=== PATIENT | female | born 1950 | race Two or more races ===

== ENCOUNTER 2019-03-29 08:04 | Inpatient (IN) | payer MEDICARE, OTHER ==
[~2019-03-29] VITALS: Ht 152.4 cm; Wt 57.8 kg
--- NOTE | 2019-03-29 08:04 | NUR ---
ED Nurse Note: Pt brought into ED by ambulance for coughing up sputum w/ blood since last night. Pt is from home. Pt is alert and orientedx4, divehi speaking. She is ambulatory with assistance. No vomiting, but coughing up sputum. Dried blood in L nostril.
[2019-03-29] MEDS ORDERED: Pantoprazole Inj IV ONE (08:15)
[2019-03-29] MEDS ORDERED: cefTRIAXone 1 GM in NS 55 ML IV ONE (08:15)
[2019-03-29] MEDS ORDERED: Pantoprazole 80 MG in NS 250 ML IV ONE (08:15)
[2019-03-29] MEDS ORDERED: Pantoprazole Inj IVP ONE (08:15)
--- NOTE | 2019-03-29 08:17 | Emergency Room Report ---
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 Patient states that she coughed this morning and vomited bright red blood. EMS was called. EMS states there was bright red blood in the house but that there has been no bleeding since. Patient denies being on any blood thinners or any medication daily. She denies any chest pain or shortness of breath. She complains of epigastric pain. She denies NSAID consumption as well as alcohol consumption. No recent travel. No fever or chills. Allergies: Coded Allergies: TURKEY (Unverified Allergy, Unknown, 03/29/19) Tuna (Unverified Allergy, Unknown, 03/29/19) Patient History Social History: Denies: smoking, alcohol use, drug use Last Menstrual Period: na Reviewed Nursing Documentation: PMH: Agreed; PSxH: Agreed Nursing Documentation-PMH Past Medical History: No Stated History Review of Systems All Other Systems: negative except mentioned in HPI Physical Exam Vital Signs Date Time Temp Pulse Resp B/P (MAP) Pulse Ox O2 Delivery O2 Flow Rate FiO2 03/29/19 07:57 98.1 117 20 125/75 (92) 97 Room Air Sp02 EP Interpretation: reviewed, normal General Appearance: no apparent distress, alert, GCS 15, non-toxic Head: normocephalic, atraumatic Eyes: bilateral eye normal inspection, bilateral eye PERRL ENT: hearing grossly normal, normal pharynx, no angioedema, normal voice, other - Dried blood around her left nare Neck: full range of motion, supple/symm/no masses, other - Dried blood on her anterior neck Respiratory: chest non-tender, lungs clear, normal breath sounds, speaking full sentences Cardiovascular #1: no edema, tachycardia Cardiovascular #2: 2+ carotid (R), 2+ carotid (L), 2+ radial (R), 2+ radial (L) , 2+ dorsalis pedis (R), 2+ dorsalis pedis (L) Gastrointestinal: normal bowel sounds, soft, non-distended, no guarding, no rebound, other - Gastric pain with no guarding or rebound Rectal: deferred Genitourinary: normal inspection, no CVA tenderness Musculoskeletal: back normal, normal range of motion, calf tenderness, gait/ station normal, non-tender Neurologic: alert, motor strength/tone normal, oriented x3, sensory intact, responsive, speech normal Psychiatric: judgement/insight normal, memory normal, mood/affect normal, no suicidal/homicidal ideation Reflexes: 3+ bicep (R), 3+ bicep (L), 3+ tricep (R), 3+ tricep (L), 3+ knee (R) , 3+ knee (L) Lymphatic: no adenopathy Procedures Critical Care Time Critical Care Time Total critical care time: Approximately 35 minutes. Due to a high probability of clinically significant, life threatening deterioration, the patient required my highest level of preparedness to intervene emergently and I personally spent this critical care time directly and personally managing the patient. This critical care time included obtaining a history; examining the patient; pulse oximetry; ordering and review of studies; arranging urgent treatment with development of a management plan; evaluation of patient's response to treatment ; frequent reassessment; and, discussions with other providers.This critical care time was performed to assess and manage the high probability of imminent, life-threatening deterioration that could result in multi-organ failure. It was exclusive of separately billable procedures and treating other patients and teaching time. Please see MDM section and the rest of the note for further information on patient assessment and treatment. Medical Decision Making Diagnostic Impression: Primary Impression: Upper GI bleed ER Course Patient reevaluated at 9 AM. Her heart rate is improving current heart rate 95 bpm. Patient had no episodes of vomiting. Patient was given 4 mg of IV Zofran. Patient given fluid bolus. Patient given 80 mg of IV Protonix and started on a Protonix drip at 8 mg an hour. Since hemoglobin and hematocrit are stable but will need to be rechecked in [address] for [address] abdomen pelvis to rule out any acute intra-abdominal pathology. Results are pending. Dr. Duarte who is hospitalist glue maker bone is at bedside evaluating patient for admission and will call for GI consultation. Laboratory Tests Test 03/29/19 08:15 03/29/19 08:55 White Blood Count 3.5 K/UL (4.8-10.8) L Red Blood Count 4.98 M/UL (4.20-5.40) Hemoglobin 14.5 G/DL (12.0-16.0) Hematocrit 41.4 % (37.0-47.0) Mean Corpuscular Volume 83 FL (80-99) Mean Corpuscular Hemoglobin 29.1 PG (27.0-31.0) Mean Corpuscular Hemoglobin Concent 35.1 G/DL (32.0-36.0) Red Cell Distribution Width 12.0 % (11.6-14.8) Platelet Count 166 K/UL (150-450) Mean Platelet Volume 8.5 FL (6.5-10.1) Neutrophils (%) (Auto) 63.0 % (45.0-75.0) Lymphocytes (%) (Auto) 25.5 % (20.0-45.0) Monocytes (%) (Auto) 9.3 % (1.0-10.0) Eosinophils (%) (Auto) 1.6 % (0.0-3.0) Basophils (%) (Auto) 0.6 % (0.0-2.0) Prothrombin Time 11.0 SEC (9.30-11.50) Prothrombin Time INR 1.0 (0.9-1.1) Activated Partial Thromboplast Time 29 SEC (23-33) Sodium Level 138 MMOL/L (136-145) Potassium Level 3.4 MMOL/L (3.5-5.1) L Chloride Level 103 MMOL/L (98-107) Carbon Dioxide Level 24 MMOL/L (21-32) Anion Gap 11 mmol/L (5-15) Blood Urea Nitrogen 14 mg/dL (7-18) Creatinine 0.8 MG/DL (0.55-1.30) Estimate Glomerular Filtration Rate > 60 mL/min (>60) Glucose Level 101 MG/DL (74-106) Calcium Level 9.6 MG/DL (8.5-10.1) Total Bilirubin 0.4 MG/DL (0.2-1.0) Aspartate Amino Transferase (AST) 27 U/L (15-37) Alanine Aminotransferase (ALT) 14 U/L (12-78) Alkaline Phosphatase 93 U/L (46-116) Total Protein 8.4 G/DL (6.4-8.2) H Albumin 4.1 G/DL (3.4-5.0) Globulin 4.3 g/dL Albumin/Globulin Ratio 1.0 (1.0-2.7) Lipase 83 U/L (73-393) Urine Color Pale yellow Urine Appearance Clear Urine pH 6 (4.5-8.0) Urine Specific [place] 1.010 (1.005-1.035) Urine Protein Negative (NEGATIVE) Urine Glucose (UA) Negative (NEGATIVE) Urine Ketones 1+ (NEGATIVE) H Urine Blood 2+ (NEGATIVE) H Urine Nitrite Negative (NEGATIVE) Urine Bilirubin Negative (NEGATIVE) Urine Urobilinogen Normal MG/DL (0.0-1.0) Urine Leukocyte Esterase Negative (NEGATIVE) Urine RBC Pending Urine WBC Pending Urine Squamous Epithelial Cells Pending Urine Bacteria Pending EKG Diagnostic Results EKG Time: 08:22 EP Interpretation: Karly Krause MD Rate: tachycardiac Rhythm: other - sinus tachycardia ST Segments: no acute changes ASA given to the pt in ED: No Rhythm Strip Diag. Results Rhythm Strip Time: 08:22 EP Interpretation: yes Rate: 104 Rhythm: no PVC's, no ectopy, other - sinus tachycardia Last Vital Signs Date Time Temp Pulse Resp B/P (MAP) Pulse Ox O2 Delivery O2 Flow Rate FiO2 03/29/19 07:57 98.1 117 20 125/75 (92) 97 Room Air Disposition: ADMITTED INPATIENT Condition: Critical Karly Krause M.D. Mar 29, 2019 08:17
[2019-03-29 08:30] VITALS: BP 151/82
[2019-03-29 08:42] LABS: BASOPHILS % (AUTO) 0.6 % (0.0-2.0); EOSINOPHILS % (AUTO) 1.6 % (0.0-3.0); HEMATOCRIT 41.4 % (37.0-47.0); HEMOGLOBIN 14.5 G/DL (12.0-16.0); LYMPHOCYTES % (AUTO) 25.5 % (20.0-45.0); MEAN CORPUSCULAR VOLUME 83 FL (80-99); MONOCYTES % (AUTO) 9.3 % (1.0-10.0); PLATELET COUNT 166 K/UL (150-450); RED BLOOD COUNT 4.98 M/UL (4.20-5.40); WHITE BLOOD COUNT 3.5 K/UL (4.8-10.8)
--- NOTE | 2019-03-29 08:50 | NUR ---
ED Nurse Note: Pt taken to CT.
[2019-03-29 09:01] LABS: ANION GAP 11 mmol/L (5-15); BLOOD UREA NITROGEN 14 mg/dL (7-18); CALCIUM 9.6 MG/DL (8.5-10.1); CARBON DIOXIDE 24 MMOL/L (21-32); CHLORIDE 103 MMOL/L (98-107); CREATININE 0.8 MG/DL (0.55-1.30); POTASSIUM 3.4 MMOL/L (3.5-5.1); SODIUM 138 MMOL/L (136-145)
[2019-03-29 09:05] LABS: ALANINE AMINOTRANSFERASE 14 U/L (12-78); ALBUMIN 4.1 G/DL (3.4-5.0); ALKALINE PHOSPHATASE 93 U/L (46-116); ASPARTATE AMINO TRANSFERASE 27 U/L (15-37); BILIRUBIN,TOTAL 0.4 MG/DL (0.2-1.0)
[2019-03-29 09:07] LABS: APPEARANCE,URINE CLEAR; BILIRUBIN, URINE NEGATIVE (NEGATIVE); COLOR,URINE PALE YELLOW; GLUCOSE, URINE (UA) NEGATIVE (NEGATIVE); KETONES,URINE 1+ (NEGATIVE); LEUKOCYTE ESTERASE ,URINE NEGATIVE (NEGATIVE); NITRITE,URINE NEGATIVE (NEGATIVE); PH,URINE 6 (4.5-8.0); PROTEIN,URINE NEGATIVE (NEGATIVE); UROBILINOGEN,URINE NORMAL MG/DL (0.0-1.0)
--- NOTE | 2019-03-29 09:28 | Diagnostic Imaging Report ---
INDICATION: Abdominal pain TECHNIQUE: Continuous helical transaxial imaging of the abdomen and pelvis was obtained from the lung bases to the pubic symphysis. No intravenous contrast was administered. Coronal 2-D reformats were also obtained. Automatic Exposure Control was utilized. Total Dose length Product (DLP): A [address] Dose Index Volume (CTDIvol): 15.1 mGy Comparison: none FINDINGS: Lungs: Reticular, groundglass and some airspace opacification noted within the visualized lung bases. The reticular or interstitial densities predominate. The heart is enlarged. There is a small hiatal hernia. No pleural effusion is identified. . Liver: There is motion related artifact present which limits evaluation. No gross abnormalities are seen. Gallbladder/biliary system: Gallbladder is surgically absent. There are surgical clips in the gallbladder fossa. No biliary ductal dilatation is seen.. Spleen: There is suggestion of calcifications within the spleen which is normal in size. Pancreas: Grossly unremarkable Kidneys/Bladder: There is mild right hydroureteronephrosis. There is no obvious obstructing stone identified on this examination. The left kidney is unremarkable. The bladder is unremarkable.. Adrenal glands: Unremarkable Bowel: No obvious evidence for bowel obstruction. Appendix is only partially seen at its base and appearing normal. In addition, there are no secondary signs of acute appendicitis appreciated. Aorta/IVC: Mild arterial calcification noted within the aorta. No aneurysm identified. Peritoneum: There is no free fluid. Atrophic uterus demonstrated.. There are metallic artifacts posterior to the uterus of undetermined cause. This may be from prior surgery. Bones: There is a moderate scoliosis of the lumbar spine convex to the left. There is narrowing of intervertebral discs and accompanying endplate osteophyte formation. Hypertrophied facet joints also demonstrated. IMPRESSION: Mild right hydroureteronephrosis without evidence of obstruction. Consider recently passed stone or pyelonephritis. Basilar lung disease. Suspect CHF or interstitial pneumonitis. Please correlate clinically. Limited evaluation due to artifacts primarily related to motion. Hiatal hernia Atherosclerotic disease Status post cholecystectomy. Scoliosis and moderate degenerative disease. Calcified granulomata within the spleen. Metallic artifacts in the low pelvis may be from prior surgery. Correlate clinically. Note: Evaluation of solid organs is limited on non contrast imaging. The CT scanner at [facility] is accredited by the [employer] and the scans are performed using dose optimization techniques as appropriate to a performed exam including Automatic Exposure control.
--- NOTE | 2019-03-29 09:47 | History and Physical ---
History of Present Illness General Date patient seen: Mar 29, 2019 Reason for Hospitalization: Gastrointestinal Bleed Present Illness HPI Patient is a 68-year-old female from [facility] who presented today ER with blood in her vomit. Patient says she is never had this happen to her in the past. Patient denies any diarrhea or abdominal pain. She has a history of hypertension, hydronephrosis, cervical cancer status post chemoradiation and surgery, cholecystitis status post cholecystostomy tube and cholecystectomy eventually. She denies any weight loss, dysphagia, odynophagia. Vomiting blood only happened once and has not recurred since she came to the ER. Patient says she takes no medications. She denies any chest pain, shortness of breath, palpitations. She denies any history of previous GI bleeding. She denies taking ibuprofen, Advil, Aleve. In the middle of my interview patient phone rang, patient started talking on the phone, and did not get off. Interview ended prematurely. PAST MEDICAL HISTORY: Hypertension.Hydronephrosis. Cervical cancer, status post chemoradiation. Cholecystitis, status post cholecystectomy. PAST SURGICAL HISTORY: Hysterectomy and cholecystectomy. SOCIAL HISTORY: The patient denies any tobacco, alcohol, or drug abuse. FAMILY HISTORY: Denies family history of DM or HTN Allergies: Coded Allergies: TURKEY (Unverified Allergy, Unknown, 03/29/19) Tuna (Unverified Allergy, Unknown, 03/29/19) Medication History No Active Prescriptions or Reported Meds Patient History Healthcare decision maker Resuscitation status Advanced Directive on File Review of Systems Constitutional: Denies: no symptoms, see HPI, chills, sweats, fever, malaise, weakness, other Eye: Denies: no symptoms, see HPI, eye pain, blurred vision, tearing, double vision, nose pain, nose congestion, acuity changes, discharge, other ENT: Denies: no symptoms, see HPI, ear pain, ear discharge, nose pain, nose congestion, throat pain, throat swelling, mouth pain, hearing loss, nasal discharge, other Respiratory: Denies: no symptoms, see HPI, cough, orthopnea, shortness of breath, stridor, wheezing, NICHOLSON, sputum, other Cardiovascular: Denies: no symptoms, see HPI, chest pain, edema, palpitations, syncope, PND, other Gastrointestinal: Reports: vomiting, hematemesis Genitourinary: Denies: no symptoms, see HPI, discharge, dysuria, frequency, hematuria, pain, retention, incontinence, urgency, vag bleed/dc, other Musculoskeletal: Denies: no symptoms, see HPI, back pain, gout, joint pain, joint swelling, muscle pain, muscle stiffness, other Psychiatric: Denies: no symptoms, see HPI, prior hx, anxiety, depressed feelings, emotional problems, SI, HI, hallucinations, other Neurological: Denies: no symptoms, see HPI, headache, numbness, paresthesia, seizure, tingling, tremors, focal weakness, syncope, dizziness, other Endocrine: Denies: no symptoms, see HPI, excessive sweating, flushing, intolerance to temperature, increased thirst, increased urine, unexplained weight loss, other Hematologic/Lymphatic: Denies: no symptoms, see HPI, anemia, blood clots, easy bleeding, easy bruising, swollen glands, diathesis, other Physical Exam General Appearance: WD/WN, no apparent distress, alert Lines, tubes and drains: peripheral HEENT: normocephalic, atraumatic Neck: normal alignment, supple Respiratory/Chest: other - did not examine due to lack of cooperation Cardiovascular/Chest: other - Did not examine due to lack of cooperation Abdomen: other - Did not examine due to lack of cooperation Extremities: normal range of motion Skin Exam: normal pigmentation, warm/dry Neurologic: other - Did not examine due to lack of cooperation Musculoskeletal: normal muscle bulk Last 24 Hour Vital Signs Date Time Temp Pulse Resp B/P (MAP) Pulse Ox O2 Delivery O2 Flow Rate FiO2 03/29/19 08:30 98.1 104 23 151/82 99 Nasal Cannula 2.0 03/29/19 08:30 104 23 Nasal Cannula 2.0 99 03/29/19 07:57 98.1 117 20 125/75 (92) 97 Room Air Laboratory Tests Test 03/29/19 08:15 03/29/19 08:55 White Blood Count 3.5 K/UL (4.8-10.8) L Red Blood Count 4.98 M/UL (4.20-5.40) Hemoglobin 14.5 G/DL (12.0-16.0) Hematocrit 41.4 % (37.0-47.0) Mean Corpuscular Volume 83 FL (80-99) Mean Corpuscular Hemoglobin 29.1 PG (27.0-31.0) Mean Corpuscular Hemoglobin Concent 35.1 G/DL (32.0-36.0) Red Cell Distribution Width 12.0 % (11.6-14.8) Platelet Count 166 K/UL (150-450) Mean Platelet Volume 8.5 FL (6.5-10.1) Neutrophils (%) (Auto) 63.0 % (45.0-75.0) Lymphocytes (%) (Auto) 25.5 % (20.0-45.0) Monocytes (%) (Auto) 9.3 % (1.0-10.0) Eosinophils (%) (Auto) 1.6 % (0.0-3.0) Basophils (%) (Auto) 0.6 % (0.0-2.0) Prothrombin Time 11.0 SEC (9.30-11.50) Prothromb Time International Ratio 1.0 (0.9-1.1) Activated Partial Thromboplast Time 29 SEC (23-33) Sodium Level 138 MMOL/L (136-145) Potassium Level 3.4 MMOL/L (3.5-5.1) L Chloride Level 103 MMOL/L (98-107) Carbon Dioxide Level 24 MMOL/L (21-32) Anion Gap 11 mmol/L (5-15) Blood Urea Nitrogen 14 mg/dL (7-18) Creatinine 0.8 MG/DL (0.55-1.30) Estimat Glomerular Filtration Rate > 60 mL/min (>60) Glucose Level 101 MG/DL (74-106) Calcium Level 9.6 MG/DL (8.5-10.1) Total Bilirubin 0.4 MG/DL (0.2-1.0) Aspartate Amino Transf (AST/SGOT) 27 U/L (15-37) Alanine Aminotransferase (ALT/SGPT) 14 U/L (12-78) Alkaline Phosphatase 93 U/L (46-116) Total Protein 8.4 G/DL (6.4-8.2) H Albumin 4.1 G/DL (3.4-5.0) Globulin 4.3 g/dL Albumin/Globulin Ratio 1.0 (1.0-2.7) Lipase 83 U/L (73-393) Urine Color Pale yellow Urine Appearance Clear Urine pH 6 (4.5-8.0) Urine Specific [place] 1.010 (1.005-1.035) Urine Protein Negative (NEGATIVE) Urine Glucose (UA) Negative (NEGATIVE) Urine Ketones 1+ (NEGATIVE) H Urine Blood 2+ (NEGATIVE) H Urine Nitrite Negative (NEGATIVE) Urine Bilirubin Negative (NEGATIVE) Urine Urobilinogen Normal MG/DL (0.0-1.0) Urine Leukocyte Esterase Negative (NEGATIVE) Urine RBC 2-4 /HPF (0 - 2) H Urine WBC 0 /HPF (0 - 2) Urine Squamous Epithelial Cells Occasional /LPF Urine Bacteria Occasional /HPF (NONE) Height (Feet): 5 Weight (Pounds): 135 Medications Current Medications Medications (Trade) Dose Ordered Sig/Pancho Route PRN Reason Start Time Stop Time Status Last Admin Dose Admin Pantoprazole 80 mg/Sodium Chloride 250 ml @ 25 mls/hr Q10H ONCE IV 03/29/19 08:15 03/29/19 18:14 03/29/19 09:[address] abdomen pelvis: Mild right hydroureteronephrosis without evidence of obstruction. Consider recently passed stone or pyelonephritis. Basilar lung disease. Suspect CHF or interstitial pneumonitis. Please correlate clinically. Limited evaluation due to artifacts primarily related to motion. Hiatal hernia Atherosclerotic disease Status post cholecystectomy. Scoliosis and moderate degenerative disease. Calcified granulomata within the spleen. Metallic artifacts in the low pelvis may be from prior surgery. Correlate clinically. CXR: Interstitial opacities nonspecific. Considerations include mild CHF or pneumonitis EKG is personally interpreted by me: sinus tachycardia at 101, LVH Assessment/Plan Problem List: (1) Upper GI bleed ICD Codes: K92.2 - Gastrointestinal hemorrhage, unspecified SNOMED: [id number] Status: stable Assessment/Plan: 68-year-old female with history of cervical cancer status post hysterectomy and chemotherapy who presented with hematemesis. Her white blood cell count is low at 3.5, hemoglobin 14, hematocrit 41, platelet count 166. Sodium 138, potassium 344 her BUN is 14 and creatinine is 0.8. Her liver function tests are normal. CT abdomen pelvis was done without contrast which showed evidence of mild right hydroureteronephrosis without evidence of obstruction, hiatal hernia. #Hematemesis #Upper GI bleed Admit to telemetry Keep n.p.o. except for meds IV fluids for hydration Monitor H&H, transfuse if less than 7 Protonix drip GI consultation I spent 72 minutes in this encounter. Greater than 50% spent counseling and care coordination. I spent 35 minutes on reviewing old records. Plan of care discussed with patient, consultants and ED physician. Saul Duarte M.D. Mar 29, 2019 09:47
--- NOTE | 2019-03-29 09:49 | NUR ---
ED Nurse Note: MD notified pt coughed up 20 cc of blood and that pt is asking for something for cough.
[2019-03-29] MEDS ORDERED: guaiFENesin w/Codeine 5ml Liq ud ORAL PRN (10:00)
[2019-03-29] MEDS ORDERED: Albuterol/Ipratropium 3ml neb HHN PRN (10:00)
[2019-03-29 11:00] VITALS: BP 143/81
--- NOTE | 2019-03-29 12:05 | NUR ---
ED Nurse Note: Pt transferred to tele. Report given to Wicho Bonilla RN. Pt is a&ox4, set up on monitor. Received by RN. All belongings taken up.
[2019-03-29 12:30] VITALS: BP 124/80
--- NOTE | 2019-03-29 13:21 | Diagnostic Imaging Report ---
Indication: Dyspnea Comparison: None A single view chest radiograph was obtained. Findings: Interstitial densities appear prominent within the lungs. Heart is borderline enlarged. Bones are osteopenic. Left hemidiaphragm may be slightly elevated. IMPRESSION: Interstitial opacities nonspecific. Considerations include mild CHF or pneumonitis
--- NOTE | 2019-03-29 13:39 | NUR ---
NURSE NOTES: Received pt from BANQUET SUPERVISOR COLEEN 1210 pm, All admission assessments and instructions done and pt verbally confirmed to understand all. Pt is awake and alert, pt is in RA, no SOB or acute respiratory distress noted. , Pt has intact iv access LAC 20G is running well.Pt is on continues heart monitoring. Dr CERDA is aware about K 3.4 and explain EGD, waiting to call back. Pt is NPO as order. pt is coughing with no blood so far. skin is intact. all needs attended, bed is locked and is in the lowest position, call light within easy reach. will continue to monitor. Addendum: 03/29/19 at 1513 by Wicho Kennedy RN pt stated no meds at home.
[2019-03-29 16:00] VITALS: BP 133/76
--- NOTE | 2019-03-29 16:45 | Consultation ---
DATE OF CONSULTATION: 03/29/2019 CONSULTING PHYSICIAN: Bairon Johnson M.D. CHIEF COMPLAINT: GI bleeding, hematemesis. HISTORY OF PRESENT ILLNESS: This is a 68-year-old female with past medical history of hypertension, hydronephrosis, cervical cancer status post chemoradiation, cholecystitis initially requiring cholecystostomy tube placement and subsequently cholecystectomy presented to the hospital with hematemesis. According to the patient, she never had this colon problem before, never had an endoscopy before. Just she she started having vomiting blood. Denies any dysphagia. Denies any odynophagia. Denies any dizziness. PAST MEDICAL HISTORY: 1. Hypertension. 2. Hydronephrosis. 3. Cervical cancer, status post chemoradiation. 4. Cholecystitis, status post cholecystectomy. ALLERGIES: To turkey and tuna. MEDICATIONS: Please see medication reconciliation list. SOCIAL HISTORY: The patient denies any tobacco, alcohol, or drug abuse. FAMILY HISTORY: Noncontributory. PAST SURGICAL HISTORY: Hysterectomy and cholecystectomy. REVIEW OF SYSTEMS: A 10-point review of systems was performed and pertinent positives in HPI. PHYSICAL EXAMINATION: GENERAL: Well-developed female, in no acute distress. VITAL SIGNS: Temperature is 98.1, pulse 97, respirations 20, blood pressure 142/81. HEENT: Normocephalic, atraumatic. Sclerae anicteric. NECK: Supple. No evidence of obvious lymphadenopathy. CARDIOVASCULAR: Rhythm rate and rhythm. Plus S1, S2. No obvious murmur. LUNGS: Clear to auscultation bilaterally. ABDOMEN: Positive bowel sounds. Soft and nontender. No rebound. No guarding. No peritoneal sign. EXTREMITIES: No cyanosis. No clubbing. No edema. LABORATORY DATA: White count 3.5, hemoglobin 14, hematocrit 41, platelet count is 166. Chem-7 sodium 138, potassium 3.4, BUN is 14, creatinine is 0.8. Liver function grossly normal. CT of the abdomen and pelvis was done in the emergency room without contrast, which showed evidence of mild right hydroureteronephrosis without any evidence of obstruction, vascular lung disease suspect for CHF or interstitial pneumonia, hiatal hernia, scoliosis, calcified granulomatous disease. ASSESSMENT AND PLAN: This is a 68-year-old female with hematemesis. Plan to keep her NPO except for medication. IV fluids for hydration. Monitor hemoglobin and hematocrit. Transfuse to keep hemoglobin above 7. Protonix drip. Plan to do an endoscopy today if it is possible, if not tomorrow morning. I want to thank Dr. Rolon and Dr. Hughes for this kind referral. Bairon Johnson M.D. DR: JOSE ARMANDO JOB#: [id number] CC: Belinda Rolon M.D.; Fax#: [phone] Saul Duarte M.D.
--- NOTE | 2019-03-29 16:47 | NUR ---
NURSE NOTES: pt vomited 10cc, Dr CERDA is aware. will continue to monitor.
--- NOTE | 2019-03-29 18:39 | NUR ---
NURSE NOTES: Dr CERDA called back and ordered REGLAN and KCL, and is aware that pt needs to be informed about EGD to sign the consent form, stated he will come tomorrow to explain the procedure to pt and consent form can be signed tomorrow. will continue to monitor.
--- NOTE | 2019-03-29 19:16 | NUR ---
NURSE NOTES: Received pt from JUAN F Sands. pt awake, alert, and talkative. Family at bedside. Bed in lowest position. Call light within reach. RN reported that pt will sign consent tomorrow after MD explains procedure. Will continue to monitor.
--- NOTE | 2019-03-29 19:20 | NUR ---
HAND-OFF: Report given to CASSIDY ROGEL. Pt is awake and stable, daughter is on bed side.
[2019-03-29 20:00] VITALS: BP 120/48
[2019-03-29] MEDS: Pantoprazole Inj IVP SCH (21:39)
[2019-03-29] MEDS: Metoclopramide 10mg/2ml Inj IVP SCH (21:39)
--- NOTE | 2019-03-29 23:41 | NUR ---
NURSE NOTES: Called and left a message with Dr. Hurley (covering for Dr. Rolon) regarding pts request for sleeping pill. Awaiting call back.
[2019-03-30] VITALS (10 sets, daily range): BP systolic 97–136; BP diastolic 54–87
--- NOTE | 2019-03-30 01:21 | NUR ---
NURSE NOTES: Called and left a second message with Dr. Rolon regarding pts request for a sleeping pill. Awaiting call back.
[2019-03-30] MEDS: Metoclopramide 10mg/2ml Inj IVP SCH ×4 (03:01→20:22)
[2019-03-30 07:19] LABS: ANION GAP 12 mmol/L (5-15); BLOOD UREA NITROGEN 15 mg/dL (7-18); CALCIUM 8.8 MG/DL (8.5-10.1); CARBON DIOXIDE 21 MMOL/L (21-32); CHLORIDE 107 MMOL/L (98-107); CREATININE 0.8 MG/DL (0.55-1.30); POTASSIUM 4.2 MMOL/L (3.5-5.1); SODIUM 140 MMOL/L (136-145)
[2019-03-30 07:34] LABS: BASOPHILS % (AUTO) 0.2 % (0.0-2.0); EOSINOPHILS % (AUTO) 0.3 % (0.0-3.0); HEMATOCRIT 32.7 % (37.0-47.0); HEMOGLOBIN 11.4 G/DL (12.0-16.0); LYMPHOCYTES % (AUTO) 14.6 % (20.0-45.0); MEAN CORPUSCULAR VOLUME 83 FL (80-99); MONOCYTES % (AUTO) 7.6 % (1.0-10.0); NEUTROPHILS % (AUTO) 77.3 % (45.0-75.0); PLATELET COUNT 142 K/UL (150-450); RED BLOOD COUNT 3.93 M/UL (4.20-5.40); RED CELL DISTRIBUTION WIDTH 12.1 % (11.6-14.8); WHITE BLOOD COUNT 4.7 K/UL (4.8-10.8)
--- NOTE | 2019-03-30 07:39 | NUR ---
NURSE NOTES: Received pt from CASSIDY ROGEL, Pt is awake and alert, pt is in RA, no SOB or acute respiratory distress noted. Pt has intact iv access LAC 20G is running well. No complain of pain at this moment. pt is NPO due to EGD today. Pt is on continues heart monitoring. all needs attended, bed is locked and is in the lowest position, call light within easy reach. will continue to monitor.
--- NOTE | 2019-03-30 08:00 | GI Progress Note ---
Assessment/Plan Problems: (1) Upper GI bleed ICD Codes: K92.2 - Gastrointestinal hemorrhage, unspecified SNOMED: 38390134 Assessment/Plan plan for EGD for today Objective Last 24 Hour Vital Signs Date Time Temp Pulse Resp B/P (MAP) Pulse Ox O2 Delivery O2 Flow Rate FiO2 03/30/19 04:00 89 03/30/19 04:00 97.0 87 20 136/87 (103) 93 03/30/19 00:00 86 03/29/19 21:00 Room Air 03/29/19 20:00 99 03/29/19 20:00 97.0 90 20 120/48 (72) 95 03/29/19 16:00 98.1 97 18 133/76 (95) 93 03/29/19 15:28 86 03/29/19 15:09 69 18 96 Room Air 8.0 36 65 16 95 03/29/19 13:01 92 03/29/19 13:00 Room Air 03/29/19 12:30 97.7 95 21 124/80 (95) 94 03/29/19 12:05 98.6 87 21 124/86 98 Room Air 03/29/19 11:00 98.1 97 20 143/81 96 Room Air 03/29/19 08:30 98.1 104 23 151/82 99 Nasal Cannula 2.0 03/29/19 08:30 104 23 Nasal Cannula 2.0 99 Intake and Output 03/29/19 03/30/19 19:00 07:00 Intake Total 940 ml Output Total 20 ml Balance 920 ml Intake Oral 0 ml IV Total 940 ml Output Emesis 20 ml # Voids 3 3 Laboratory Tests Test 03/29/19 08:15 03/29/19 08:55 03/30/19 06:05 White Blood Count 3.5 K/UL (4.8-10.8) L 4.7 K/UL (4.8-10.8) L Red Blood Count 4.98 M/UL (4.20-5.40) 3.93 M/UL (4.20-5.40) L Hemoglobin 14.5 G/DL (12.0-16.0) 11.4 G/DL (12.0-16.0) L Hematocrit 41.4 % (37.0-47.0) 32.7 % (37.0-47.0) L Mean Corpuscular Volume 83 FL (80-99) 83 FL (80-99) Mean Corpuscular Hemoglobin 29.1 PG (27.0-31.0) 29.2 PG (27.0-31.0) Mean Corpuscular Hemoglobin Concent 35.1 G/DL (32.0-36.0) 35.0 G/DL (32.0-36.0) Red Cell Distribution Width 12.0 % (11.6-14.8) 12.1 % (11.6-14.8) Platelet Count 166 K/UL (150-450) 142 K/UL (150-450) L Mean Platelet Volume 8.5 FL (6.5-10.1) 7.2 FL (6.5-10.1) Neutrophils (%) (Auto) 63.0 % (45.0-75.0) 77.3 % (45.0-75.0) H Lymphocytes (%) (Auto) 25.5 % (20.0-45.0) 14.6 % (20.0-45.0) L Monocytes (%) (Auto) 9.3 % (1.0-10.0) 7.6 % (1.0-10.0) Eosinophils (%) (Auto) 1.6 % (0.0-3.0) 0.3 % (0.0-3.0) Basophils (%) (Auto) 0.6 % (0.0-2.0) 0.2 % (0.0-2.0) Prothrombin Time 11.0 SEC (9.30-11.50) Prothromb Time International Ratio 1.0 (0.9-1.1) Activated Partial Thromboplast Time 29 SEC (23-33) Sodium Level 138 MMOL/L (136-145) 140 MMOL/L (136-145) Potassium Level 3.4 MMOL/L (3.5-5.1) L 4.2 MMOL/L (3.5-5.1) Chloride Level 103 MMOL/L (98-107) 107 MMOL/L (98-107) Carbon Dioxide Level 24 MMOL/L (21-32) 21 MMOL/L (21-32) Anion Gap 11 mmol/L (5-15) 12 mmol/L (5-15) Blood Urea Nitrogen 14 mg/dL (7-18) 15 mg/dL (7-18) Creatinine 0.8 MG/DL (0.55-1.30) 0.8 MG/DL (0.55-1.30) Estimat Glomerular Filtration Rate > 60 mL/min (>60) > 60 mL/min (>60) Glucose Level 101 MG/DL (74-106) 71 MG/DL (74-106) L Calcium Level 9.6 MG/DL (8.5-10.1) 8.8 MG/DL (8.5-10.1) Total Bilirubin 0.4 MG/DL (0.2-1.0) Aspartate Amino Transf (AST/SGOT) 27 U/L (15-37) Alanine Aminotransferase (ALT/SGPT) 14 U/L (12-78) Alkaline Phosphatase 93 U/L (46-116) Total Protein 8.4 G/DL (6.4-8.2) H Albumin 4.1 G/DL (3.4-5.0) Globulin 4.3 g/dL Albumin/Globulin Ratio 1.0 (1.0-2.7) Lipase 83 U/L (73-393) Urine Color Pale yellow Urine Appearance Clear Urine pH 6 (4.5-8.0) Urine Specific [place] 1.010 (1.005-1.035) Urine Protein Negative (NEGATIVE) Urine Glucose (UA) Negative (NEGATIVE) Urine Ketones 1+ (NEGATIVE) H Urine Blood 2+ (NEGATIVE) H Urine Nitrite Negative (NEGATIVE) Urine Bilirubin Negative (NEGATIVE) Urine Urobilinogen Normal MG/DL (0.0-1.0) Urine Leukocyte Esterase Negative (NEGATIVE) Urine RBC 2-4 /HPF (0 - 2) H Urine WBC 0 /HPF (0 - 2) Urine Squamous Epithelial Cells Occasional /LPF Urine Bacteria Occasional /HPF (NONE) Height (Feet): 5 Height (Inches): 0.00 Weight (Pounds): 135 General Appearance: alert Cardiovascular: normal peripheral pulses Respiratory/Chest: lungs clear Abdominal Exam: normal bowel sounds, non tender, soft Extremities: non-tender Bairon Johnson MD Mar 30, 2019 08:00
--- NOTE | 2019-03-30 08:01 | NUR ---
HAND-OFF: Report given to JUAN F Sands. Pt stable.
[2019-03-30] MEDS: Pantoprazole Inj IVP SCH ×2 (08:24→20:22)
--- NOTE | 2019-03-30 08:25 | NUR ---
NURSE NOTES: 5mg REGLAN is wasted in med room.
--- NOTE | 2019-03-30 09:06 | NUR ---
NURSE NOTES: pt vomited 10cc blood, Dr CERDA is aware, no new order to RN. Will continue to monitor.
[2019-03-30] MEDS ORDERED: Atropine Inj 1mg/10ml Syr IV PRN (11:45)
[2019-03-30] MEDS ORDERED: DiphenhydrAMINE 50mg/ml Inj IVP PRN (11:45)
[2019-03-30] MEDS ORDERED: fentaNYL 100 mcg/2 mL IV PRN (11:45)
--- NOTE | 2019-03-30 11:48 | Anethesia Preoperative Eval ---
Anesthesia Pre-op PMH/ROS General Date of Evaluation: Mar 30, 2019 Time of Evaluation: 11:46 Anesthesiologist: cynthia ASA Score: ASA 3 Mallampati Score Class I : Soft palate, uvula, fauces, pillars visible Class II: Soft palate, uvula, fauces visible Class III: Soft palate, base of uvula visible Class IV: Only hard plate visible Mallampati Classification: Class II Surgeon: vinny Diagnosis: gi bleed Surgical Procedure: egd Anesthesia History: none Social History: smoking - nonsmoker Family History: no anesthesia problems Allergies: Coded Allergies: TURKEY (Unverified Allergy, Unknown, 03/29/19) Tuna (Unverified Allergy, Unknown, 03/29/19) Medications: see eMAR Patient NPO?: Yes Past Medical History Cardiovascular: Reports: HTN Gastrointestinal/Genitourinary: Reports: other - gi bleed, cervical cancer, cholecystectomy Anesthesia Pre-op Phys. Exam Physician Exam Last Vital Signs Date Time Temp Pulse Resp B/P (MAP) Pulse Ox O2 Delivery O2 Flow Rate FiO2 03/30/19 09:00 Room Air 03/30/19 08:00 98.1 100 18 126/63 (84) 94 03/29/19 15:09 8.0 36 Constitutional: NAD Neurologic: CN 2-12 intact Cardiovascular: RRR Respiratory: CTA Gastrointestinal: S/NT/ND Airway Exam Mallampati Score: Class II MO: full Neck: flexible TMD: 2fb ROM: full Teeth: missing Dentures: upper, lower Anesthesia Pre-op A/P Labs Hematology Test 03/30/19 06:05 White Blood Count 4.7 K/UL (4.8-10.8) L Red Blood Count 3.93 M/UL (4.20-5.40) L Hemoglobin 11.4 G/DL (12.0-16.0) L Hematocrit 32.7 % (37.0-47.0) L Mean Corpuscular Volume 83 FL (80-99) Mean Corpuscular Hemoglobin 29.2 PG (27.0-31.0) Mean Corpuscular Hemoglobin Concent 35.0 G/DL (32.0-36.0) Red Cell Distribution Width 12.1 % (11.6-14.8) Platelet Count 142 K/UL (150-450) L Mean Platelet Volume 7.2 FL (6.5-10.1) Neutrophils (%) (Auto) 77.3 % (45.0-75.0) H Lymphocytes (%) (Auto) 14.6 % (20.0-45.0) L Monocytes (%) (Auto) 7.6 % (1.0-10.0) Eosinophils (%) (Auto) 0.3 % (0.0-3.0) Basophils (%) (Auto) 0.2 % (0.0-2.0) Chemistry Test 03/30/19 06:05 Sodium Level 140 MMOL/L (136-145) Potassium Level 4.2 MMOL/L (3.5-5.1) Chloride Level 107 MMOL/L (98-107) Carbon Dioxide Level 21 MMOL/L (21-32) Anion Gap 12 mmol/L (5-15) Blood Urea Nitrogen 15 mg/dL (7-18) Creatinine 0.8 MG/DL (0.55-1.30) Estimat Glomerular Filtration Rate > 60 mL/min (>60) Glucose Level 71 MG/DL (74-106) L Calcium Level 8.8 MG/DL (8.5-10.1) Risk Assessment & Plan Assessment: asa3 Plan: mac Status Change Before Surgery: No Pre-Antibiotics Drug: Patricia Trujillo MD Mar 30, 2019 11:48
[2019-03-30] MEDS ORDERED: D5NS 1000ml IV ONE (12:00)
[2019-03-30] MEDS ORDERED: Propofol 200mg/20ml IV ONE (12:00)
[2019-03-30] MEDS ORDERED: Lidocaine 1% MPF 10mg/ml 5ml ONE (12:00)
[2019-03-30] MEDS ORDERED: Esmolol 100mg/10ml Inj ONE (12:00)
--- NOTE | 2019-03-30 12:01 | NUR ---
NURSE NOTES: pt is A&O x4 and stable, left unit to GI lab, waiting to come back.
--- NOTE | 2019-03-30 12:18 | Pre-Procedure Note/Attestation ---
Pre-Procedure Note/Attestation Complete Prior to Procedure Planned Procedure: not applicable Procedure Narrative: egd Indications for Procedure Pre-Operative Diagnosis: gib Attestation I attest that I discussed the nature of the procedure; its benefits; risks and complications; and alternatives (and the risks and benefits of such alternatives ), prior to the procedure, with the patient (or the patient's legal business office representative). I attest that, if there was a reasonable possibility of needing a blood transfusion, the patient (or the patient's legal business office representative) was given the [facility] standardized written summary, pursuant to the Gildardo Da Blood Safety Act ([place] Health and Safety Code # 1645, as amended). I attest that I re-evaluated the patient just prior to the surgery and that there has been no change in the patient's H&P, except as documented below: Bairon Johnson MD Mar 30, 2019 12:18
[2019-03-30] MEDS ORDERED: NS 500ML IVPB ONE (12:20)
--- NOTE | 2019-03-30 12:34 | Endoscopy Procedure Note ---
Endoscopy Procedure Note General Indication for Procedure: gib Procedures Performed: EGD Operative Findings/Diagnosis: gastritis Specimen: yes Pt Tolerated Procedure Well: Yes Estimated Blood Loss: none Anesthesia Anesthesiologist: diamond Anesthesia: MAC Inserted Devices Implant(s) used?: No GI Core Measures 50 yrs or older w/o bx or poly: Not Applicable 10yrs. F/U recommended: Not Applicable Bairon Johnson MD Mar 30, 2019 12:34
[2019-03-30] MEDS ORDERED: Omnipaque-300 100ml vial INJ PRN (12:35)
--- NOTE | 2019-03-30 13:19 | Immediate Post-Op Evaluation ---
Immediate Post-Op Evalulation Immediate Post-Op Evalulation Procedure: egd w/bx Date of Evaluation: Mar 30, 2019 Time of Evaluation: 12:48 IV Fluids: 250ml d5/0.9ns Blood Products: none Estimated Blood Loss: negligible Blood Pressure Systolic: 101 Blood Pressure Diastolic: 54 Pulse Rate: 112 Respiratory Rate: 18 O2 Sat by Pulse Oximetry: 100 Temperature (Fahrenheit): 98.1 Pain Score (1-10): 0 Nausea: No Vomiting: No Complications none Patient Status: awake, reacts, patent Hydration Status: adequate Drug: Patricia Trujillo MD Mar 30, 2019 13:19
--- NOTE | 2019-03-30 13:20 | 48 Hour Post Anesthesia Eval ---
Post Anesthesia Evaluation Procedure: egd w/bx Date of Evaluation: Mar 30, 2019 Time of Evaluation: 12:50 Blood Pressure Systolic: 105 0: 60 Pulse Rate: 109 Respiratory Rate: 18 Temperature (Fahrenheit): 98.1 O2 Sat by Pulse Oximetry: 100 Airway: patent Nausea: No Vomiting: No Pain Intensity: 0 Hydration Status: adequate Cardiopulmonary Status: stable Mental Status/LOC: patient returned to baseline Post-Anesthesia Complications: none Follow-up care needed: N/A Patricia Feng MD Mar 30, 2019 13:20
--- NOTE | 2019-03-30 13:49 | NUR ---
CASE MANAGEMENT: INITIAL REVIEW 68YR OLD FEMALE FROM HOME CC: VOMITING BLOOD GASTROINTESTINAL BLEED PMH: HTN ; HYDRONEPHROSIS , CERVICAL CA S/P CHEMORADIATION; CHOLECYSTITIS, S/P CHOLECYSTECTOMY SI:UPPER GI BLEED . MILD CHF OR PNEUMONITIS 98.0 117 20 125/75 97% ON RA WBC 3.5 K+ 3.4 IS:IV ROCEPHIN X1 IVF NS BOLUS X1 IV ZOFRAN X1 IV PROTONIX X2 CHEST X-RAY X1- MILD CHF OR PNEUMONITIS CT ABD/PEL X1 EKG- SINUS TACHYCARDIA 101 LVH \: 2E TELE UNIT DCP: HOME WHEN STABLE PLAN: IVF PROTONIX DRIP GI CONSULT ADMIT TELE SCD'S APPLIED SOCK TURNER CONSENT FOR EGD WITH POSSIBLE BIOPSY
--- NOTE | 2019-03-30 14:02 | General Progress Note ---
Assessment/Plan Problem List: (1) Upper GI bleed ICD Codes: K92.2 - Gastrointestinal hemorrhage, unspecified SNOMED: 25571143 Status: stable, unchanged Assessment/Plan: 68-year-old female with history of cervical cancer status post hysterectomy and chemotherapy who presented with hematemesis. Her white blood cell count is low at 3.5, hemoglobin 14, hematocrit 41, platelet count 166. Sodium 138, potassium 344 her BUN is 14 and creatinine is 0.8. Her liver function tests are normal. CT abdomen pelvis was done without contrast which showed evidence of mild right hydroureteronephrosis without evidence of obstruction, hiatal hernia. #Hematemesis #Upper GI bleed Admit to telemetry Keep n.p.o. except for meds IV fluids for hydration Monitor H&H, transfuse if less than 7 Protonix drip GI consultation, EGD today I spent 42 minutes in this encounter. Greater than 50% spent counseling and care coordination. Plan of care discussed with patient, consultants and ED physician. Subjective Date patient seen: Mar 30, 2019 ROS Limited/Unobtainable: No Constitutional: Denies: no symptoms, chills, diaphoresis, fever, malaise, weakness, other HEENT: Denies: no symptoms, eye pain, blurred vision, tearing, double vision, ear pain, ear discharge, nose pain, nose congestion, throat pain, throat swelling, mouth pain, mouth swelling, other Cardiovascular: Denies: no symptoms, chest pain, edema, irregular heart rate, lightheadedness, palpitations, syncope, other Respiratory: Denies: no symptoms, cough, orthopnea, shortness of breath, SOB with excertion, SOB at rest, sputum, stridor, wheezing, other Gastrointestinal/Abdominal: Reports: other - coughing up blood Genitourinary: Denies: no symptoms, burning, discharge, frequency, flank pain, hematuria, incontinence, pain, urgency, other Neurologic/Psychiatric: Denies: no symptoms, anxiety, depressed, emotional problems, headache, numbness, paresthesia, pre-existing deficit, seizure, tingling, tremors, weakness, other Endocrine: Denies: no symptoms, excessive sweating, flushing, intolerance to cold, intolerance to heat, increased hunger, increased thirst, increased urine, unexplained weight gain, unexplained weight loss, other Hematologic/Lymphatic: Denies: no symptoms, anemia, easy bleeding, easy bruising, other Allergies: Coded Allergies: TURKEY (Unverified Allergy, Unknown, 03/29/19) Tuna (Unverified Allergy, Unknown, 03/29/19) Subjective EGD today. Hgb dropped by 3 grams Objective Last 24 Hour Vital Signs Date Time Temp Pulse Resp B/P (MAP) Pulse Ox O2 Delivery O2 Flow Rate FiO2 03/30/19 13:20 109 18 100 03/30/19 13:19 112 18 100 03/30/19 12:59 98.0 110 23 112/60 100 Nasal Cannula 3 03/30/19 12:50 109 23 105/60 100 Nasal Cannula 3 03/30/19 12:45 111 19 101/54 98 Nasal Cannula 3 03/30/19 12:40 111 24 97/55 98 Nasal Cannula 3 03/30/19 12:36 98.1 114 22 101/54 98 Nasal Cannula 3 03/30/19 11:53 97.9 106 18 121/67 (85) 95 03/30/19 11:45 107 03/30/19 09:00 Room Air 03/30/19 08:00 98.1 100 18 126/63 (84) 94 03/30/19 07:46 99 03/30/19 04:00 89 03/30/19 04:00 97.0 87 20 136/87 (103) 93 03/30/19 00:00 86 03/29/19 21:00 Room Air 03/29/19 20:00 99 03/29/19 20:00 97.0 90 20 120/48 (72) 95 03/29/19 16:00 98.1 97 18 133/76 (95) 93 03/29/19 15:28 86 03/29/19 15:09 69 18 96 Room Air 8.0 36 65 16 95 Intake and Output 03/29/19 03/30/19 19:00 07:00 Intake Total 940 ml Output Total 20 ml Balance 920 ml Intake Oral 0 ml IV Total 940 ml Output Emesis 20 ml # Voids 3 3 Laboratory Tests 03/30/19 06:05: White Blood Count 4.7L, Red Blood Count 3.93L, Hemoglobin 11.4L, Hematocrit 32.7L, Mean Corpuscular Volume 83, Mean Corpuscular Hemoglobin 29.2, Mean Corpuscular Hemoglobin Concent 35.0, Red Cell Distribution Width 12.1, Platelet Count 142L, Mean Platelet Volume 7.2, Neutrophils (%) (Auto) 77.3H, Lymphocytes (%) (Auto) 14.6L, Monocytes (%) (Auto) 7.6, Eosinophils (%) (Auto) 0.3, Basophils (%) (Auto) 0.2, Sodium Level 140, Potassium Level 4.2, Chloride Level 107, Carbon Dioxide Level 21, Anion Gap 12, Blood Urea Nitrogen 15, Creatinine 0.8, Estimat Glomerular Filtration Rate > 60, Glucose Level 71L, Calcium Level 8.8 Height (Feet): 5 Height (Inches): 0.00 Weight (Pounds): 135 General Appearance: no apparent distress EENT: PERRL/EOMI Neck: non-tender Cardiovascular: normal peripheral pulses, tachycardia Respiratory/Chest: chest wall non-tender, lungs clear, normal breath sounds Abdomen: normal bowel sounds, non tender, soft Extremities: normal range of motion, non-tender Neurologic: travel sales consultant II-XII grossly normal, no motor/sensory deficits, abnormal gait , alert, oriented x 3, responsive Skin: normal pigmentation, warm/dry Saul Duarte M.D. Mar 30, 2019 14:02
--- NOTE | 2019-03-30 17:00 | Procedure Note ---
DATE OF PROCEDURE: 03/30/2019 SURGEON: Bairon Johnson M.D. PROCEDURE: Upper endoscopy with biopsy. ANESTHESIA: Per Dr. Go. INSTRUMENT: Olympus adult flexible upper endoscope. INDICATION: Upper GI bleeding. REASON FOR PROCEDURE: The procedure, risks, benefits, and possible consequences, including hemorrhage, aspiration, perforation and infection, and alternative treatments, were explained to the patient/legal guardian by Dr. Bairon Johnson and the patient/legal guardian understood and accepted these risks. DESCRIPTION OF PROCEDURE: After informed consent was obtained and the patient was adequately sedated, Olympus upper endoscope was advanced from mouth into the second portion of the duodenum and retroflexion was performed in the stomach. The patient had evidence of 3 cm hiatal hernia. No evidence of esophagitis. In the stomach, there was evidence of mild diffuse gastritis. Random biopsy from antrum was obtained to rule out H. pylori infection. Otherwise, no obvious source of upper GI bleeding was seen in this examination. At this time, the upper endoscope was retrieved and procedure was terminated. SUMMARY OF FINDINGS: 1. A 3 cm hiatal hernia. 2. Gastritis, status biopsy. RECOMMENDATION: 1. Followup biopsy results and treat accordingly. 2. Resume diet. 3. Monitor labs. 4. Consider Pulmonology consultation for possible hemoptysis. I want to thank, Dr. Duarte, for this kind referral. Bairon Johnson M.D. DR: Cintia JOB#: [id number] CC: Dr. Duarte
--- NOTE | 2019-03-30 18:47 | NUR ---
NURSE NOTES: IV FLUID N/S 150ML/HR IS RUNNING ALL THE SHIFT AND PT TOLERATED WELL. WILL CONTINUE TO MONITOR.
--- NOTE | 2019-03-30 19:30 | NUR ---
NURSE NOTES: RECEIVED PATIENT RESTING IN BED, NO COMPLAINTS OF PAIN AT THIS TIME. FALL PRECAUTIONS IN PLACE: CALL LIGHT AND BEDSIDE TABLE WITHIN REACH, BED IN LOW POSITION AND BED ALARM ON. WILL CONTINUE WITH PLAN OF CARE.
--- NOTE | 2019-03-30 19:47 | NUR ---
HAND-OFF: Report given to JUAN F SILVESTRE. Pt is awake and stable. Pt signed consent form for contrast.
[2019-03-31] VITALS: BP 144/80
[2019-03-31] MEDS: Metoclopramide 10mg/2ml Inj IVP SCH ×4 (02:36→20:46)
[2019-03-31 04:00] VITALS: BP 146/77
--- NOTE | 2019-03-31 07:15 | NUR ---
HAND-OFF: Report given to JUAN F HALE. PATIENT RESTING IN BED, NO SIGNS OF DISTRESS NOTED.
--- NOTE | 2019-03-31 07:28 | NUR ---
NURSE NOTES: Received pt from NIRMALA ROGEL, Pt is awake and alert, pt is in RA, no SOB or acute respiratory distress noted. Pt has intact iv access LH 22G is running well. No complain of pain at this moment. pt is eating breakfast with observation. Pt is on continues heart monitoring. all needs attended, bed is locked and is in the lowest position, call light within easy reach. will continue to monitor.
[2019-03-31 07:45] LABS: BASOPHILS % (AUTO) 0.5 % (0.0-2.0); EOSINOPHILS % (AUTO) 0.6 % (0.0-3.0); HEMATOCRIT 31.8 % (37.0-47.0); HEMOGLOBIN 11.2 G/DL (12.0-16.0); LYMPHOCYTES % (AUTO) 12.7 % (20.0-45.0); MEAN CORPUSCULAR VOLUME 83 FL (80-99); MONOCYTES % (AUTO) 10.1 % (1.0-10.0); NEUTROPHILS % (AUTO) 76.1 % (45.0-75.0); PLATELET COUNT 133 K/UL (150-450); RED BLOOD COUNT 3.84 M/UL (4.20-5.40); RED CELL DISTRIBUTION WIDTH 11.7 % (11.6-14.8); WHITE BLOOD COUNT 4.4 K/UL (4.8-10.8)
--- NOTE | 2019-03-31 07:45 | NUR ---
NURSE NOTES: pt is vomiting blood 10cc, Dr CERDA notified and [id number] to keep pt NPO and he will F/U, IS aware pt already consumed half a breakfast, stated no problem, keep her NPO from now, pt is aware.Will continue to monitor.
[2019-03-31 08:00] VITALS: BP 148/77
[2019-03-31] MEDS: Pantoprazole Inj IVP SCH ×2 (08:13→20:45)
[2019-03-31 08:36] LABS: ANION GAP 13 mmol/L (5-15); BLOOD UREA NITROGEN 11 mg/dL (7-18); CALCIUM 8.7 MG/DL (8.5-10.1); CARBON DIOXIDE 20 MMOL/L (21-32); CHLORIDE 107 MMOL/L (98-107); CREATININE 0.7 MG/DL (0.55-1.30); POTASSIUM 3.5 MMOL/L (3.5-5.1); SODIUM 140 MMOL/L (136-145)
--- NOTE | 2019-03-31 11:21 | GI Progress Note ---
Assessment/Plan Problems: (1) Upper GI bleed ICD Codes: K92.2 - Gastrointestinal hemorrhage, unspecified SNOMED: 75246100 (2) Hemoptysis ICD Codes: R04.2 - Hemoptysis SNOMED: 98908916 Status: stable Status Narrative Discussed with Dr. Johnson. Assessment/Plan s/p EGD SUMMARY OF FINDINGS: 1. A 3 cm hiatal hernia. 2. Gastritis, status biopsy. RECOMMENDATION: F/U chest CT Consider Pulmonology consultation for possible hemoptysis. Followup biopsy results and treat accordingly. Resume diet. Monitor labs. The patient was seen and examined at bedside and all new and available data was reviewed in the patients chart. I agree with the above findings, impression and plan. (Patient seen earlier today. Signature stamp does not reflect patient encounter time.). - Bairon Johnson MD Subjective Subjective still has nausea Objective Last 24 Hour Vital Signs Date Time Temp Pulse Resp B/P (MAP) Pulse Ox O2 Delivery O2 Flow Rate FiO2 03/31/19 09:00 Room Air 03/31/19 08:00 98.6 91 18 148/77 (100) 95 03/31/19 07:37 108 03/31/19 04:00 98.0 87 20 146/77 (100) 94 03/31/19 04:00 83 03/31/19 00:00 98.1 94 20 144/80 (101) 96 03/31/19 00:00 81 03/30/19 21:00 Room Air 03/30/19 20:00 119 03/30/19 20:00 98.2 99 20 134/70 (91) 94 03/30/19 16:48 111 03/30/19 15:45 96.6 108 18 122/68 (86) 96 03/30/19 13:20 109 18 100 03/30/19 13:19 112 18 100 03/30/19 12:59 98.0 110 23 112/60 100 Nasal Cannula 3 03/30/19 12:50 109 23 105/60 100 Nasal Cannula 3 03/30/19 12:45 111 19 101/54 98 Nasal Cannula 3 03/30/19 12:40 111 24 97/55 98 Nasal Cannula 3 03/30/19 12:36 98.1 114 22 101/54 98 Nasal Cannula 3 03/30/19 11:53 97.9 106 18 121/67 (85) 95 03/30/19 11:45 107 Intake and Output 03/30/19 03/31/19 19:00 07:00 Intake Total 500 ml 1650 ml Output Total 0 ml Balance 500 ml 1650 ml IV Total 500 ml 1650 ml Estimated Blood Loss 0 ml # Voids 2 4 Laboratory Tests Test 03/31/19 06:43 White Blood Count 4.4 K/UL (4.8-10.8) L Red Blood Count 3.84 M/UL (4.20-5.40) L Hemoglobin 11.2 G/DL (12.0-16.0) L Hematocrit 31.8 % (37.0-47.0) L Mean Corpuscular Volume 83 FL (80-99) Mean Corpuscular Hemoglobin 29.2 PG (27.0-31.0) Mean Corpuscular Hemoglobin Concent 35.3 G/DL (32.0-36.0) Red Cell Distribution Width 11.7 % (11.6-14.8) Platelet Count 133 K/UL (150-450) L Mean Platelet Volume 7.4 FL (6.5-10.1) Neutrophils (%) (Auto) 76.1 % (45.0-75.0) H Lymphocytes (%) (Auto) 12.7 % (20.0-45.0) L Monocytes (%) (Auto) 10.1 % (1.0-10.0) H Eosinophils (%) (Auto) 0.6 % (0.0-3.0) Basophils (%) (Auto) 0.5 % (0.0-2.0) Sodium Level 140 MMOL/L (136-145) Potassium Level 3.5 MMOL/L (3.5-5.1) Chloride Level 107 MMOL/L (98-107) Carbon Dioxide Level 20 MMOL/L (21-32) L Anion Gap 13 mmol/L (5-15) Blood Urea Nitrogen 11 mg/dL (7-18) Creatinine 0.7 MG/DL (0.55-1.30) Estimat Glomerular Filtration Rate > 60 mL/min (>60) Glucose Level 95 MG/DL (74-106) Calcium Level 8.7 MG/DL (8.5-10.1) Height (Feet): 5 Height (Inches): 0.00 Weight (Pounds): 127 General Appearance: WD/WN, no apparent distress, alert Cardiovascular: normal rate Respiratory/Chest: normal breath sounds, no respiratory distress Abdominal Exam: normal bowel sounds, non tender, soft Extremities: normal range of motion, non-tender Raymond Menendez NP Mar 31, 2019 11:21
[2019-03-31 11:40] VITALS: BP 159/90
--- NOTE | 2019-03-31 12:29 | NUR ---
CASE MANAGEMENT: REVIEW 03/31/19 SI:S/P ERCP WITH BIOPSY UPPER GI BLEED . MILD CHF OR PNEUMONITIS . HEMOPTYSIS 97.5 84 20 159/90 94% ON RA WBC 4.4 CO2 20 H/H 11.2/31.8 IS:IV NS @150ML/HR IV PROTONIX BID IV REGLAN Q6HR \: 2E TELE UNIT DCP: HOME WHEN STABLE PLAN: CT CHEST -PENDING PATIENT STILL VOMITING BLOOD- MD MADE AWARE CONT NPO PULMO CONSULT -HEMOPTYSIS
--- NOTE | 2019-03-31 12:43 | General Progress Note ---
Assessment/Plan Problem List: (1) Upper GI bleed ICD Codes: K92.2 - Gastrointestinal hemorrhage, unspecified SNOMED: 11249384 Status: stable Assessment/Plan: 68-year-old female with history of cervical cancer status post hysterectomy and chemotherapy who presented with hematemesis. Her white blood cell count is low at 3.5, hemoglobin 14, hematocrit 41, platelet count 166. Sodium 138, potassium 344 her BUN is 14 and creatinine is 0.8. Her liver function tests are normal. CT abdomen pelvis was done without contrast which showed evidence of mild right hydroureteronephrosis without evidence of obstruction, hiatal hernia. #Hematemesis vs hemoptysis #Upper GI bleed- ruled out, negative EGD Admit to telemetry Keep n.p.o. except for meds IV fluids for hydration Monitor H&H, transfuse if less than 7 Protonix drip GI consultation, EGD negative pulmonary consult CT chest with contrast I spent 42 minutes in this encounter. Greater than 50% spent counseling and care coordination. Plan of care discussed with patient, consultants and ED physician. Subjective Date patient seen: Mar 31, 2019 ROS Limited/Unobtainable: No Constitutional: Denies: no symptoms, chills, diaphoresis, fever, malaise, weakness, other HEENT: Denies: no symptoms, eye pain, blurred vision, tearing, double vision, ear pain, ear discharge, nose pain, nose congestion, throat pain, throat swelling, mouth pain, mouth swelling, other Cardiovascular: Denies: no symptoms, chest pain, edema, irregular heart rate, lightheadedness, palpitations, syncope, other Respiratory: Reports: other - hemoptysis Gastrointestinal/Abdominal: Reports: abdominal pain, other - ?hematemesis Genitourinary: Denies: no symptoms, burning, discharge, frequency, flank pain, hematuria, incontinence, pain, urgency, other Neurologic/Psychiatric: Denies: no symptoms, anxiety, depressed, emotional problems, headache, numbness, paresthesia, pre-existing deficit, seizure, tingling, tremors, weakness, other Endocrine: Denies: no symptoms, excessive sweating, flushing, intolerance to cold, intolerance to heat, increased hunger, increased thirst, increased urine, unexplained weight gain, unexplained weight loss, other Hematologic/Lymphatic: Denies: no symptoms, anemia, easy bleeding, easy bruising, other Allergies: Coded Allergies: TURKEY (Unverified Allergy, Unknown, 03/29/19) Tuna (Unverified Allergy, Unknown, 03/29/19) Subjective Hgb dropped by 3 grams, however remained stable. continues to have hematemesis vs hemoptysis. EGD negative, CT chest ordered, not done yet Objective Last 24 Hour Vital Signs Date Time Temp Pulse Resp B/P (MAP) Pulse Ox O2 Delivery O2 Flow Rate FiO2 03/31/19 11:40 97.5 84 20 159/90 (113) 94 03/31/19 09:00 Room Air 03/31/19 08:00 98.6 91 18 148/77 (100) 95 03/31/19 07:37 108 03/31/19 04:00 98.0 87 20 146/77 (100) 94 03/31/19 04:00 83 03/31/19 00:00 98.1 94 20 144/80 (101) 96 03/31/19 00:00 81 03/30/19 21:00 Room Air 03/30/19 20:00 119 03/30/19 20:00 98.2 99 20 134/70 (91) 94 03/30/19 16:48 111 03/30/19 15:45 96.6 108 18 122/68 (86) 96 03/30/19 13:20 109 18 100 03/30/19 13:19 112 18 100 03/30/19 12:59 98.0 110 23 112/60 100 Nasal Cannula 3 03/30/19 12:50 109 23 105/60 100 Nasal Cannula 3 03/30/19 12:45 111 19 101/54 98 Nasal Cannula 3 Intake and Output 03/30/19 03/31/19 19:00 07:00 Intake Total 500 ml 1650 ml Output Total 0 ml Balance 500 ml 1650 ml IV Total 500 ml 1650 ml Estimated Blood Loss 0 ml # Voids 2 4 Laboratory Tests 03/31/19 06:43: White Blood Count 4.4L, Red Blood Count 3.84L, Hemoglobin 11.2L, Hematocrit 31.8L, Mean Corpuscular Volume 83, Mean Corpuscular Hemoglobin 29.2, Mean Corpuscular Hemoglobin Concent 35.3, Red Cell Distribution Width 11.7, Platelet Count 133L, Mean Platelet Volume 7.4, Neutrophils (%) (Auto) 76.1H, Lymphocytes (%) (Auto) 12.7L, Monocytes (%) (Auto) 10.1H, Eosinophils (%) (Auto) 0.6, Basophils (%) (Auto) 0.5, Sodium Level 140, Potassium Level 3.5, Chloride Level 107, Carbon Dioxide Level 20L, Anion Gap 13, Blood Urea Nitrogen 11, Creatinine 0.7, Estimat Glomerular Filtration Rate > 60, Glucose Level 95, Calcium Level 8.7 Height (Feet): 5 Height (Inches): 0.00 Weight (Pounds): 127 Objective General Appearance: WD/WN, no apparent distress, alert Lines, tubes and drains: peripheral HEENT: normocephalic, atraumatic Neck: normal alignment, supple Respiratory/Chest: other - did not examine due to lack of cooperation Cardiovascular/Chest: other - Did not examine due to lack of cooperation Abdomen: other - Did not examine due to lack of cooperation Extremities: normal range of motion Skin Exam: normal pigmentation, warm/dry Neurologic: other - Did not examine due to lack of cooperation Musculoskeletal: normal muscle bulk Saul Duarte M.D. Mar 31, 2019 12:43
--- NOTE | 2019-03-31 13:14 | NUR ---
NURSE NOTES: Pt is stable, left unit foe CT.
--- NOTE | 2019-03-31 13:24 | CDS Physician Query ---
Clarification is required for compliance, coding accuracy, and to reflect severity of illness for this patient Dear Dr. Saul Duarte Date: 03/31/2019 Billing Analyst/ CDS Name: Kamilah Matos Clinical Documentation States: HNP: 68-year-old female with history of cervical cancer status post hysterectomy and chemotherapy who presented with hematemesis EGD note: INDICATION: Upper GI bleeding...mild diffuse gastritis. Random biopsy from antrum was obtained Labs: 03/29 Hb 14.5, Hct 41.4 03/31 Hb 11.2 Hct 31.8 Please clarify the specific type of anemia below: [] Drop in hemoglobin [] Drop in hematocrit [x] Acute blood loss anemia [] Acute on chronic blood loss anemia [] Chronic blood loss anemia [] Other: [] Unknown Present on Admission: [] Yes [x] No [] Clinically Undetermined __saul duarte 03/31/2019 ___ Physician signature Date Please also document in your Progress Notes and/or Discharge Summary and indicate if the condition was present on admission. MTDD
--- NOTE | 2019-03-31 13:42 | NUR ---
NURSE NOTES: pt came back from CT, she is vomiting 10cc, Dr PA notified, no new order to RN. Will continue to monitor.
--- NOTE | 2019-03-31 14:07 | NUR ---
NURSE NOTES: 5mg Reglan now and 5mg at 815 am wasted in med room.
--- NOTE | 2019-03-31 15:20 | Diagnostic Imaging Report ---
Clinical Indication: Chest pain, history of hiatal hernia Technique: IV administration nonionic contrast. Spiral acquisition obtained through the chest. Multiplanar reconstructions generated. Total dose length product 169 mGycm. CTDIvol(s) 50 mGy. Dose reduction achieved using automated exposure control Comparison: none Findings: Spiculated masslike opacity is seen in the right upper lobe adjacent to the major fissure medially, measures approximately 4.4 x 2.5 x 2.6 cm, demonstrates some stranding that reaches the pleural surface. This there is some associated calcification at the inferior aspect of this. A complex shaped opacity is seen in the left upper lobe, border is somewhat difficult to define measuring approximately 4.7 x 1.2 x 4.1 cm, also abutting the major fissure. Within the posterior inferior right upper lobe, there are areas of honeycombing and cystic spaces. Areas of honeycombing are also seen in the superior segments of the lower lobes bilaterally. More ill-defined reticular and airspace opacities are seen inferiorly in the lower lobes. An area of opacity with some central bronchiectasis is seen in the inferior lingula. There are some focal areas of hyperinflation and borderline cystic spaces in the right upper lobe. No effusions. The heart is borderline enlarged. There is a small pericardial effusion, measuring up to 12 mm in thickness. A calcified granulomatous node is seen adjacent to the esophagus distally. Other calcified granulomatous nodes are seen in the pulmonary tayler bilaterally. No hilar or mediastinal mass or adenopathy. The included portion of the thyroid is unremarkable. No axillary or chest wall mass or adenopathy. There is a small sliding-type hiatal hernia. The bones demonstrate mild thoracolumbar scoliotic deformity. There are mild degenerative spondylosis changes. Included upper abdominal anatomy demonstrates moderate to severe right and minimal left hydronephrosis. This is also described on an abdominal CT scan of 2 days earlier. However, the right hydronephrosis appears somewhat more severe. Calcified granulomata are seen within the spleen. There are cholecystectomy clips. Impression: Spiculated masslike opacity in the right upper lobe measuring 4.4 x 2.5 x 2.6 cm. Given associated findings, suspect this represents an a confluent opacities secondary to pulmonary fibrosis. However, the possibility that this represents a neoplasm should also be considered. PET scanning may be useful for further evaluation Similar opacity in the left upper lobe. This appears somewhat less masslike and is likewise most likely an area of confluent opacity secondary to scarring but likewise a neoplasm cannot be ruled out Other extensive postinflammatory changes in both lungs, including areas of bronchiectasis and honeycombing, cystic/bullous changes. Basilar interstitial and airspace opacities are nonspecific, most likely postinflammatory but could represent areas of acute inflammation or edema Borderline cardiomegaly Small pericardial effusion Marked right hydronephrosis. This appears to have increased in extent from a previous abdominal/pelvic CT of 03/29/2019 Evidence of old granulomatous disease graph evidence of prior cholecystectomy. Mild thoracolumbar scoliotic deformity Small sliding-type hiatal hernia The CT scanner at [facility] is accredited by the [employer] and the scans are performed using protocols designed to limit radiation exposure to as low as reasonably achievable to attain images of sufficient resolution adequate for diagnostic evaluation.
[2019-03-31 16:00] VITALS: BP 143/70
--- NOTE | 2019-03-31 16:11 | NUR ---
NURSE NOTES: pt is asking for food, Dr CERDA is aware and ordered regular diet, noted and carried out. is aware pt has still blood vomiting, no new order to RN.
--- NOTE | 2019-03-31 18:20 | Consultation ---
Consult Note Assessment/Plan DICT # [id number] Yo Darden MD Mar 31, 2019 18:20
--- NOTE | 2019-03-31 19:25 | NUR ---
Received report from nurse Wicho ROGEL. Patient resting on bed, and in no distress. Denies discomfort at this time. IVF of NS ongoing at 150ml/hr via left hand.Site is clear and patent. Will continue to monitor pt.Bed at its lowest and locked.
--- NOTE | 2019-03-31 19:35 | NUR ---
HAND-OFF: Report given to SEAN RN. Pt is awake and stable.
[2019-03-31 20:00] VITALS: BP 143/73
[2019-04-01] VITALS: BP 136/71
--- NOTE | 2019-04-01 00:01 | Consultation ---
DATE OF CONSULTATION: 03/31/2019 PULMONARY CONSULTATION CONSULTING PHYSICIAN: Yo Darden M.D. REFERRING PHYSICIAN: Dr. Saul Duarte. REASON FOR CONSULTATION: Possible hemoptysis. HISTORY OF PRESENT ILLNESS: The patient is a 68-year-old female from [facility] with a history of cervical cancer, status post chemoradiation, hypertension, known hydronephrosis, cholecystitis, prior cholecystectomy, who presented with concern for hematemesis. She had no complaints of diarrhea or abdominal pain and said vomiting had occurred once and has not recurred since she came to the ER. She then went for EGD yesterday, which showed hiatal hernia and gastritis. Biopsies are pending, but given this concern, a CT of the chest was done. The patient had a recurrent episode of hematemesis versus hemoptysis yesterday and has been fine today. CT of the abdomen and pelvis showed mild right hydronephrosis without obstruction, basilar lung disease, interstitial pneumonitis, and hiatal hernia. Subsequently, a CT of the chest with contrast. Per report, there is a spiculated mass like 4 cm right upper lobe opacity with a contralateral lesion in the left upper lobe, which is left masslike and more confluent like. According to the radiologist, this could represent confluent opacity secondary to pulmonary fibrosis. I have not seen the images and was unable to open them on PACS. I will have to review them myself with Radiology tomorrow. The patient herself denies any other respiratory complaints and denies cough, wheezing, shortness of breath, and history of the blood she describes is more hematemesis like, not hemoptysis, but we will evaluate this further. PAST MEDICAL HISTORY: 1. Cervical cancer, status post chemoradiation. 2. Hypertension. 3. History of hydronephrosis. 4. Prior cholecystitis, status post cholecystectomy. SOCIAL HISTORY: No tobacco, alcohol, or drug use. FAMILY HISTORY: Noncontributory. REVIEW OF SYSTEMS: Negative other than history of present illness. PHYSICAL EXAMINATION: VITAL SIGNS: Temperature 97.5, pulse 159/90, respiratory rate 20, and saturating 94% on room air. GENERAL: She is a well-developed and well-nourished female, in no distress. Awake, alert, and oriented x2. HEENT: Normocephalic and atraumatic. Oropharynx is clear with moist mucous membranes. NECK: Supple without lymphadenopathy or JVD. CHEST: Clear. HEART: Regular rate and rhythm. ABDOMEN: Soft, nontender, nondistended. EXTREMITIES: No cyanosis, clubbing, or edema. ANCILLARY DATA: Reviewed. Imaging, reviewed. ASSESSMENT: The patient is a 68-year-old female with a history of cervical cancer, status post chemoradiation, presenting with concern for hematemesis versus hemoptysis. She underwent an EGD, which showed gastritis and mild hiatal hernia, but on CT scan of the chest, there is a masslike opacity in the right upper lobe with a contralateral left masslike opacity as well with extensive postinflammatory changes in both lungs with bronchiectasis with honeycombing and bullous change. I am unable to review the images on PACS, but I will review them with Radiology tomorrow. Differential is broad, but really depending on what the imaging shows. We will also monitor for further hemoptysis and if the patient continues to hemoptysize, she would require intubation and bronchoscopy. PROBLEM LIST: 1. Hematemesis versus hemoptysis. Status post EGD on 02/27/2019 with evidence of hiatal hernia and gastritis, biopsy pending. CT of the chest with masslike bilateral upper lobes right greater than left opacities, 4 cm on the right. 2. Concern for underlying pulmonary fibrosis. 3. Bronchiectasis and honeycombing. 4. Cervical cancer, status post chemoradiation. 5. Hypertension. 6. Hydronephrosis. 7. Anemia. 8. Gastritis. 9. Hiatal hernia. TREATMENT PLAN: 1. I will review imaging with Radiology. 2. The patient will require a PET scan as an outpatient. 3. I will see if we can obtain prior oncologic records. 4. Optimize pulmonary hygiene/mobilize as tolerated. 5. Continue as needed Mucinex. 6. As needed Robitussin with codeine. 7. Follow up endoscopy past. 8. If the patient was to have massive hemoptysis given that we know the larger of the confluent mass is in the right upper lobe, I would place the patient on her right side and attempt a fiberoptic left mainstem intubation. 9. If the patient is intubated, I will perform a bronchoscopy. 10. If there is recurrent hemoptysis, I will perform a bronchoscopy. 11. DVT prophylaxis, SCDs. Dr. Kavian, thank you for allowing me to assist in the care of your patient. If I may be of any assistance in the future, please do not hesitate to ask. Yo Darden M.D. DR: ROSALIO JOB#: [id number] CC:
--- NOTE | 2019-04-01 00:35 | NUR ---
HAND-OFF: Report given to nurse Corrie ROGEL for continuity and follow up of care Pt. resting on bed and in no distress.
--- NOTE | 2019-04-01 01:04 | NUR ---
NURSE NOTES: Received patient report from JUAN F Flores. Patient was asleep in bed. There were no signs of acute distress or pain. Patient is AO x4. She is able to ambulate with assistance. Checked IV site, patent and flushed. there were no signs of erythema, bleeding, or infiltration. Bed positioned in the lowest position with brakes on and side rails x2. Call light within reach. Will continue plan of care.
[2019-04-01] MEDS: Metoclopramide 10mg/2ml Inj IVP SCH ×4 (03:39→21:37)
[2019-04-01 04:00] VITALS: BP 139/75
[2019-04-01 07:30] LABS: BASOPHILS % (AUTO) 0.7 % (0.0-2.0); EOSINOPHILS % (AUTO) 1.2 % (0.0-3.0); HEMOGLOBIN 10.7 G/DL (12.0-16.0); LYMPHOCYTES % (AUTO) 17.6 % (20.0-45.0); MEAN CORPUSCULAR VOLUME 82 FL (80-99); MONOCYTES % (AUTO) 10.9 % (1.0-10.0); NEUTROPHILS % (AUTO) 69.5 % (45.0-75.0); PLATELET COUNT 126 K/UL (150-450); RED BLOOD COUNT 3.67 M/UL (4.20-5.40); RED CELL DISTRIBUTION WIDTH 11.6 % (11.6-14.8); WHITE BLOOD COUNT 3.7 K/UL (4.8-10.8)
--- NOTE | 2019-04-01 07:45 | NUR ---
HAND-OFF: Report given to JUAN F Reilly. Patient is awake eating breakfast. In stable condition.
[2019-04-01 08:00] VITALS: BP 157/81
--- NOTE | 2019-04-01 08:00 | NUR ---
NURSE NOTES: Recvd pt. Pt is AOx4 Nauruan speaking. pt is on room air with no sign of sob or resp distress. IV site is c/d/i. Pt SR on pain management physician. Bed in lowest locked position, call light within reach, will continue with plan of care
[2019-04-01 08:09] LABS: ANION GAP 11 mmol/L (5-15); BLOOD UREA NITROGEN 8 mg/dL (7-18); CALCIUM 8.7 MG/DL (8.5-10.1); CARBON DIOXIDE 23 MMOL/L (21-32); CHLORIDE 106 MMOL/L (98-107); CREATININE 0.7 MG/DL (0.55-1.30); POTASSIUM 3.2 MMOL/L (3.5-5.1); SODIUM 140 MMOL/L (136-145)
--- NOTE | 2019-04-01 09:03 | NUR ---
CASE MANAGEMENT: REVIEW 04/01/19 SI:S/P ERCP WITH BIOPSY UPPER GI BLEED . MILD CHF OR PNEUMONITIS . HEMOPTYSIS 98.1 77 16 139/75 94% ON RA WBC 3.7 K+3.2 H/H 10.7/30.7/31.8 IS:IV NS @150ML/HR IV PROTONIX BID IV REGLAN Q6HR \: 2E TELE UNIT DCP: HOME WHEN STABLE PLAN: RESPIRATORY CONSULT FOR MASS; POSSIBLE BRONCHOSCOPY NURSES REPORT PATIENT HAS BLOOD IN VOMIT 03/31/19 MD AWARE OUTPATIENT PET SCAN RECOMMENDED START REG DIET CT CHEST -MASS LIKE (RIGHT UPPER LOBE) ; SM PERICARDIAL EFFUSION; RIGHT HYDRONEPHROSIS (INCREASE RECOM: PET SCAN PULMO CONSULT -HEMOPTYSIS
[2019-04-01] MEDS: Pantoprazole Inj IVP SCH ×2 (09:47→21:38)
--- NOTE | 2019-04-01 09:47 | General Progress Note ---
Assessment/Plan Problem List: (1) Upper GI bleed ICD Codes: K92.2 - Gastrointestinal hemorrhage, unspecified SNOMED: 04157626 (2) Hemoptysis ICD Codes: R04.2 - Hemoptysis SNOMED: 61235643 (3) Pulmonary fibrosis ICD Codes: J84.10 - Pulmonary fibrosis, unspecified SNOMED: 70723503 (4) Hypertension ICD Codes: I10 - Essential (primary) hypertension SNOMED: 87739472 Status: stable Assessment/Plan: 68-year-old female with history of cervical cancer status post hysterectomy and chemotherapy who presented with hematemesis. Her white blood cell count is low at 3.5, hemoglobin 14, hematocrit 41, platelet count 166. Sodium 138, potassium 344 her BUN is 14 and creatinine is 0.8. Her liver function tests are normal. CT abdomen pelvis was done without contrast which showed evidence of mild right hydroureteronephrosis without evidence of obstruction, hiatal hernia. #Hematemesis vs hemoptysis , Status post EGD on 02/27/2019 with evidence of hiatal hernia and gastritis, biopsy negative. CT of the chest with masslike bilateral upper lobes right greater than left opacities, concerning for post- XRT scarring with associated fibrosis. #Pulmonary fibrosis. #Bronchiectasis and honeycombing. GI consult appreciated Pulmonary consult regarding hemoptysis and CT chest findings Outpatient PET/CT F/U with Dr. Darden afterward for Bronchoscopy and biopsy based on results of PET Observe the patient overnight in the hospital #Anemia- acute blood loss Monitor H&H, transfuse if less than 7 Protonix #Cervical cancer, status post chemoradiation. outpatient follow up #Hypertension. hold any bp meds, prn #Hydronephrosis. monitor, not an acute issue now #Gastritis #Hiatal hernia. Protonix Zofran Reglan I spent 42 minutes in this encounter. Greater than 50% spent counseling and care coordination. Plan of care discussed with patient, consultants. Subjective Allergies: Coded Allergies: TURKEY (Unverified Allergy, Unknown, 03/29/19) Tuna (Unverified Allergy, Unknown, 03/29/19) Subjective Hgb dropped by 3 grams, however remained stable. bleeding stopped. EGD negative for source of bleeding. CT chest done, results notes. Objective Last 24 Hour Vital Signs Date Time Temp Pulse Resp B/P (MAP) Pulse Ox O2 Delivery O2 Flow Rate FiO2 2/13/20 09:42 Room Air 04/01/19 08:00 99.1 84 18 157/81 (106) 96 04/01/19 08:00 86 04/01/19 04:00 75 04/01/19 04:00 98.1 77 16 139/75 (96) 94 04/01/19 00:00 73 04/01/19 00:00 98.1 71 16 136/71 (92) 94 03/31/19 21:00 Room Air 03/31/19 20:00 99 03/31/19 20:00 97.7 88 18 143/73 (96) 94 03/31/19 16:00 98.2 81 20 143/70 (94) 95 03/31/19 15:26 86 03/31/19 11:40 97.5 84 20 159/90 (113) 94 03/31/19 11:39 84 Intake and Output 03/31/19 04/01/19 19:00 07:00 Intake Total 2280 ml 313 ml Balance 2280 ml 313 ml Intake Oral 480 ml IV Total 1800 ml 313 ml # Voids 3 Laboratory Tests 04/01/19 06:10: White Blood Count 3.7L, Red Blood Count 3.67L, Hemoglobin 10.7L, Hematocrit 30.0L, Mean Corpuscular Volume 82, Mean Corpuscular Hemoglobin 29.3, Mean Corpuscular Hemoglobin Concent 35.8, Red Cell Distribution Width 11.6, Platelet Count 126L, Mean Platelet Volume 6.2L, Neutrophils (%) (Auto) 69.5, Lymphocytes (%) (Auto) 17.6L, Monocytes (%) (Auto) 10.9H, Eosinophils (%) (Auto) 1.2, Basophils (%) (Auto) 0.7, Sodium Level 140, Potassium Level 3.2L, Chloride Level 106, Carbon Dioxide Level 23, Anion Gap 11, Blood Urea Nitrogen 8, Creatinine 0.7, Estimat Glomerular Filtration Rate > 60, Glucose Level 94, Calcium Level 8.7 Height (Feet): 5 Height (Inches): 0.00 Weight (Pounds): 127 Objective General Appearance: WD/WN, no apparent distress, alert Lines, tubes and drains: peripheral HEENT: normocephalic, atraumatic Neck: normal alignment, supple Respiratory/Chest: other - did not examine due to lack of cooperation Cardiovascular/Chest: other - Did not examine due to lack of cooperation Abdomen: other - Did not examine due to lack of cooperation Extremities: normal range of motion Skin Exam: normal pigmentation, warm/dry Neurologic: other - Did not examine due to lack of cooperation Musculoskeletal: normal muscle bulk Saul Duarte M.D. Apr 01, 2019 09:47
--- NOTE | 2019-04-01 10:05 | General Progress Note ---
Assessment/Plan Problem List: (1) Upper GI bleed ICD Codes: K92.2 - Gastrointestinal hemorrhage, unspecified SNOMED: 77329736 (2) Hemoptysis ICD Codes: R04.2 - Hemoptysis SNOMED: 78359949 Status: stable Assessment/Plan: chest CT reviewed pulm in put appreciated no vomiting since yesterday on reglan on ppi add bowel regimen pending possible bronchoscopy fu H&H Subjective ROS Limited/Unobtainable: Yes Allergies: Coded Allergies: TURKEY (Unverified Allergy, Unknown, 03/29/19) Tuna (Unverified Allergy, Unknown, 03/29/19) Objective Last 24 Hour Vital Signs Date Time Temp Pulse Resp B/P (MAP) Pulse Ox O2 Delivery O2 Flow Rate FiO2 04/01/19 09:42 Room Air 04/01/19 08:00 99.1 84 18 157/81 (106) 96 04/01/19 08:00 86 04/01/19 04:00 75 04/01/19 04:00 98.1 77 16 139/75 (96) 94 04/01/19 00:00 73 04/01/19 00:00 98.1 71 16 136/71 (92) 94 03/31/19 21:00 Room Air 03/31/19 20:00 99 03/31/19 20:00 97.7 88 18 143/73 (96) 94 03/31/19 16:00 98.2 81 20 143/70 (94) 95 03/31/19 15:26 86 03/31/19 11:40 97.5 84 20 159/90 (113) 94 03/31/19 11:39 84 Intake and Output 03/31/19 04/01/19 19:00 07:00 Intake Total 2280 ml 313 ml Balance 2280 ml 313 ml Intake Oral 480 ml IV Total 1800 ml 313 ml # Voids 3 Laboratory Tests 04/01/19 06:10: White Blood Count 3.7L, Red Blood Count 3.67L, Hemoglobin 10.7L, Hematocrit 30.0L, Mean Corpuscular Volume 82, Mean Corpuscular Hemoglobin 29.3, Mean Corpuscular Hemoglobin Concent 35.8, Red Cell Distribution Width 11.6, Platelet Count 126L, Mean Platelet Volume 6.2L, Neutrophils (%) (Auto) 69.5, Lymphocytes (%) (Auto) 17.6L, Monocytes (%) (Auto) 10.9H, Eosinophils (%) (Auto) 1.2, Basophils (%) (Auto) 0.7, Sodium Level 140, Potassium Level 3.2L, Chloride Level 106, Carbon Dioxide Level 23, Anion Gap 11, Blood Urea Nitrogen 8, Creatinine 0.7, Estimat Glomerular Filtration Rate > 60, Glucose Level 94, Calcium Level 8.7 Impression: Spiculated masslike opacity in the right upper lobe measuring 4.4 x 2.5 x 2.6 cm. Given associated findings, suspect this represents an a confluent opacities secondary to pulmonary fibrosis. However, the possibility that this represents a neoplasm should also be considered. PET scanning may be useful for further evaluation Similar opacity in the left upper lobe. This appears somewhat less masslike and is likewise most likely an area of confluent opacity secondary to scarring but likewise a neoplasm cannot be ruled out Other extensive postinflammatory changes in both lungs, including areas of bronchiectasis and honeycombing, cystic/bullous changes. Basilar interstitial and airspace opacities are nonspecific, most likely postinflammatory but could represent areas of acute inflammation or edema Borderline cardiomegaly Small pericardial effusion Marked right hydronephrosis. This appears to have increased in extent from a previous abdominal/pelvic CT of 03/29/2019 Evidence of old granulomatous disease graph evidence of prior cholecystectomy. Mild thoracolumbar scoliotic deformity Small sliding-type hiatal hernia Height (Feet): 5 Height (Inches): 0.00 Weight (Pounds): 127 General Appearance: alert EENT: normal ENT inspection Neck: normal alignment Cardiovascular: normal rate Respiratory/Chest: decreased breath sounds Abdomen: normal bowel sounds, non tender, soft Extremities: non-tender Bairon Johnson MD Apr 01, 2019 10:05
[2019-04-01] MEDS: Docusate 100mg cap ORAL SCH ×2 (11:04→17:11)
[2019-04-01 12:00] VITALS: BP 139/71
--- NOTE | 2019-04-01 13:58 | Pulmonology Progress Note ---
Assessment/Plan Assessment/Plan ASSESSMENT: The patient is a 68-year-old female with a history of cervical cancer, status post chemoradiation, presenting with concern for hematemesis versus hemoptysis. She underwent an EGD, which showed gastritis and mild hiatal hernia, but on CT scan of the chest, there is a masslike opacity in the right upper lobe with a contralateral left masslike opacity as well with extensive postinflammatory changes in both lungs with bronchiectasis with honeycombing and bullous change. I reviewed imaging with radiology. I suspect these are post-XRT changes in the lungs but agree with the plan of outpatient PET/CT with bronchoscopy based on findings. PROBLEM LIST: 1. Hematemesis versus hemoptysis. Status post EGD on 02/27/2019 with evidence of hiatal hernia and gastritis, biopsy negative. CT of the chest with masslike bilateral upper lobes right greater than left opacities, concerning for post-XRT scarring with associated fibrosis. 2. Pulmonary fibrosis. 3. Bronchiectasis and honeycombing. 4. Cervical cancer, status post chemoradiation. 5. Hypertension. 6. Hydronephrosis. 7. Anemia. 8. Gastritis. 9. Hiatal hernia. TREATMENT PLAN: * Outpatient PET/CT * F/U with me afterwards * Bronchoscopy and biopsy based on results * Imaging reviewed with radiology * The importance of follow up and the possibility of a neoplastic process in the lungs discussed with patient via insert molding operator * I would observe the patient overnight in the hospital Subjective Allergies: Coded Allergies: TURKEY (Unverified Allergy, Unknown, 03/29/19) Tuna (Unverified Allergy, Unknown, 03/29/19) Subjective AFVSS on RA Imaging reviewed with radiology CS-link records reviewed Per pt S/P chemo/XRT including XRT to chest No cough no hemoptysis no hematemesis no melena no BRBPR No SOB no wheezing no FC + OOB + kailash OP GI path reviewed Path seen and examined with insert molding operator Objective Last 24 Hour Vital Signs Date Time Temp Pulse Resp B/P (MAP) Pulse Ox O2 Delivery O2 Flow Rate FiO2 04/01/19 12:00 97.9 73 18 139/71 (93) 95 04/01/19 12:00 83 04/01/19 09:42 Room Air 04/01/19 08:00 99.1 84 18 157/81 (106) 96 2/13/20 08:00 86 04/01/19 04:00 75 04/01/19 04:00 98.1 77 16 139/75 (96) 94 04/01/19 00:00 73 04/01/19 00:00 98.1 71 16 136/71 (92) 94 03/31/19 21:00 Room Air 03/31/19 20:00 99 03/31/19 20:00 97.7 88 18 143/73 (96) 94 03/31/19 16:00 98.2 81 20 143/70 (94) 95 03/31/19 15:26 86 Intake and Output 03/31/19 04/01/19 19:00 07:00 Intake Total 2280 ml 313 ml Balance 2280 ml 313 ml Intake Oral 480 ml IV Total 1800 ml 313 ml # Voids 3 General Appearance: WD/WN, no acute distress HEENT: normocephalic, atraumatic, anicteric, mucous membranes moist Respiratory/Chest: chest wall non-tender, lungs clear, normal breath sounds, no respiratory distress, no accessory muscle use Cardiovascular: normal peripheral pulses, normal rate, regular rhythm Abdomen: normal bowel sounds, soft, non tender, no organomegaly, non distended , no mass Extremities: no cyanosis, no clubbing, no edema Laboratory Tests 04/01/19 06:10: White Blood Count 3.7L, Red Blood Count 3.67L, Hemoglobin 10.7L, Hematocrit 30.0L, Mean Corpuscular Volume 82, Mean Corpuscular Hemoglobin 29.3, Mean Corpuscular Hemoglobin Concent 35.8, Red Cell Distribution Width 11.6, Platelet Count 126L, Mean Platelet Volume 6.2L, Neutrophils (%) (Auto) 69.5, Lymphocytes (%) (Auto) 17.6L, Monocytes (%) (Auto) 10.9H, Eosinophils (%) (Auto) 1.2, Basophils (%) (Auto) 0.7, Sodium Level 140, Potassium Level 3.2L, Chloride Level 106, Carbon Dioxide Level 23, Anion Gap 11, Blood Urea Nitrogen 8, Creatinine 0.7, Estimat Glomerular Filtration Rate > 60, Glucose Level 94, Calcium Level 8.7 Current Medications Medications (Trade) Dose Ordered Sig/Pancho Route PRN Reason Start Time Stop Time Status Last Admin Dose Admin Acetaminophen (Tylenol) 650 mg Q4H PRN ORAL Mild Pain (Pain Scale 1-3) 03/29/19 10:00 04/28/19 09:59 03/29/19 23:08 Acetaminophen (Tylenol) 650 mg Q4H PRN ORAL fever 03/29/19 10:00 04/28/19 09:59 Albuterol/ Ipratropium (Albuterol/ Ipratropium) 3 ml Q4H PRN HHN Shortness of Breath 03/29/19 10:00 04/03/19 09:59 Dextrose (Dextrose 50%) 25 ml Q30M PRN IV Hypoglycemia 03/29/19 10:00 04/28/19 09:59 Dextrose (Dextrose 50%) 50 ml Q30M PRN IV Hypoglycemia 03/29/19 10:00 04/28/19 09:59 Docusate Sodium (Colace) 100 mg TWICE A DAY ORAL 04/01/19 10:15 05/01/19 10:14 04/01/19 11:04 Guaifenesin/ Codeine Phosphate (Robitussin with codeine) 5 ml Q6H PRN ORAL For Cough 03/29/19 10:00 04/28/19 09:59 Metoclopramide HCl (Reglan) 5 mg Q6H IVP 03/29/19 21:00 04/28/19 20:59 04/01/19 09:47 Ondansetron HCl (Zofran) 4 mg Q6H PRN IVP Nausea & Vomiting 03/29/19 10:00 04/28/19 09:59 03/30/19 09:03 Pantoprazole (Protonix) 40 mg EVERY 12 HOURS IVP 03/29/19 21:00 04/28/19 20:59 04/01/19 09:47 Polyethylene Glycol (Miralax) 17 gm BEDTIME ORAL 04/01/19 21:00 05/01/19 20:59 Sodium Chloride 1,000 ml @ 150 mls/hr Q6H40M IVLG 03/29/19 10:47 04/28/19 10:46 04/01/19 12:07 Temazepam (RestoriL) 7.5 mg HSPRN PRN ORAL Insomnia 03/29/19 23:45 04/05/19 23:44 Yo Darden MD Apr 01, 2019 13:58
[2019-04-01 16:00] VITALS: BP 118/52
[2019-04-01 20:00] VITALS: BP 142/78
--- NOTE | 2019-04-01 20:00 | NUR ---
NURSE NOTES: RECEIVED PATIENT LYING IN BED,AWAKE, ORIENTED X3, UKRAINIAN SPEAKING, DENIES PAIN. NO SIGNS AND SYMPTOMS OF ACUTE CARDIO RESPIRATORY DISTRESS/SHORTNESS OF BREATH, DENIES CHEST PAIN, NO EDEMA NOTED, SINUS RHYTHM ON HEALTH TECHNICAL WRITER. NO SIGNS AND SYMPTOMS OF GI BLEED, DENIES HEMOPTYSIS. CONTINENT OF B/B, BEDSIDE COMMODE AVAILABLE FOR PATIENT USAGE. SIDE RAILS UP X3/BED IN LOWEST POSITION FOR SAFETY, BED ALARM ACTIVATED FOR PREVENTIVE CARE SECONDARY TO GENERALIZED WEAKNESS. ENCOURAGED PATIENT TO UTILIZE CALL LIGHT FOR ASSISTANCE, VERBALIZED UNDERSTANDING. CONTINUE WITH CURRENT PLAN OF CARE. NAD.
[2019-04-01] MEDS ORDERED: Miralax 17gm pkt ORAL SCH (21:00)
[2019-04-02] VITALS: BP_SYST 112; BP_SYST 124; BP_DIAS 45; BP_DIAS 64
[2019-04-02] MEDS: Metoclopramide 10mg/2ml Inj IVP SCH ×2 (03:03→09:43)
[2019-04-02 04:00] VITALS: BP 139/70
--- NOTE | 2019-04-02 06:41 | NUR ---
NURSE NOTES: RESTED WELL, NO SIGNIFICANT CHANGE OF CONDITION NOTED THROUGHOUT THE NIGHT. SAFETY MAINTAINED. ASSISTED WITH AM CARE, TOLERATED WELL. NAD.
--- NOTE | 2019-04-02 07:17 | NUR ---
HAND-OFF: Report given to twin ross.
[2019-04-02 07:30] LABS: BASOPHILS % (AUTO) 0.6 % (0.0-2.0); EOSINOPHILS % (AUTO) 1.3 % (0.0-3.0); HEMATOCRIT 31.3 % (37.0-47.0); HEMOGLOBIN 11.1 G/DL (12.0-16.0); LYMPHOCYTES % (AUTO) 20.4 % (20.0-45.0); MEAN CORPUSCULAR VOLUME 82 FL (80-99); MONOCYTES % (AUTO) 10.4 % (1.0-10.0); NEUTROPHILS % (AUTO) 67.3 % (45.0-75.0); PLATELET COUNT 140 K/UL (150-450); RED BLOOD COUNT 3.84 M/UL (4.20-5.40); RED CELL DISTRIBUTION WIDTH 11.7 % (11.6-14.8); WHITE BLOOD COUNT 4.2 K/UL (4.8-10.8)
[2019-04-02 07:47] LABS: ANION GAP 9 mmol/L (5-15); BLOOD UREA NITROGEN 10 mg/dL (7-18); CALCIUM 8.6 MG/DL (8.5-10.1); CARBON DIOXIDE 26 MMOL/L (21-32); CHLORIDE 107 MMOL/L (98-107); CREATININE 0.7 MG/DL (0.55-1.30); POTASSIUM 3.4 MMOL/L (3.5-5.1); SODIUM 141 MMOL/L (136-145)
[2019-04-02 08:00] VITALS: BP 142/80
[2019-04-02] MEDS ORDERED: REGLAN5 MG ORAL (08:21)
[2019-04-02] MEDS ORDERED: ROBITUSSIN AC5 ML ORAL (08:21)
[2019-04-02] MEDS ORDERED: PANTOPRAZOLE SO40 MG ORAL (08:21)
--- NOTE | 2019-04-02 08:22 | Discharge Summary ---
Discharge Summary Hospital Course Date of Admission Mar 29, 2019 at 11:47 Date of Discharge 04/02/2019 Admitting Diagnosis Gastrointestinal Bleed HPI Cristy Sprague is a 68 year old female who was admitted on Mar 29, 2019 at 11: 47 for Gastrointestonal Bleed Consultations GI, pulmonary Procedures Endoscopy (EGD) Hospital Course 68-year-old female with history of HTN, cervical cancer status post hysterectomy and chemoradiation who presented with hematemesis. Her white blood cell count is low at 3.5, hemoglobin 14, hematocrit 41, platelet count 166. Sodium 138, potassium 344 her BUN is 14 and creatinine is 0.8. Her liver function tests are normal. CT abdomen pelvis was done without contrast which showed evidence of mild right hydroureteronephrosis without evidence of obstruction, hiatal hernia. She was admitted for Hematemesis vs hemoptysis , GI consulted, Status post EGD on 02/27/2019 with evidence of hiatal hernia and gastritis, biopsy negative. CT of the chest with masslike bilateral upper lobes right greater than left opacities, concerning for post-XRT scarring with associated fibrosis, Bronchiectasis and honeycombing. Pulmonary consult regarding hemoptysis and CT chest findings. Recommenced Outpatient PET/CT. F/U with Dr. Darden afterward for Bronchoscopy and biopsy based on results of PET. Patient has had no further hemoptysis for >24hrs. Her hospital course was complicated by Anemia- acute blood loss. She was placed on protonix, cough syrup with codeine, reglan and zofran. Hemoglobin remained stable without need for transfusion. CM booking PET study at [facility]. She will need outpatient follow up with Dr. Darden after this imagining is done. Today she is alert and awake, asking to go home before noon. she is in no respiratory distress. Lungs CTA BL. No more hemoptysis. I spent 42 minutes in this encounter. Greater than 50% spent counseling and care coordination. Plan of care discussed with patient, consultants. Discharge Medications New Medications: Metoclopramide Hcl* (Reglan*) 5 Mg Tablet 5 MG ORAL EVERY 6 HOURS for 7 Days, #20 TAB Pantoprazole* (Pantoprazole*) 40 Mg Tablet.dr 40 MG ORAL DAILY for 30 Days, #30 TAB Guaifenesin/Codeine (Guaifenesin-Codeine Syrup) 5 Ml Liquid 5 ML ORAL Q6H PRN for 7 Days, #120 ML Discharge Condition Upon Discharge: stable Discharge Vital Signs Last Vital Signs Date Time Temp Pulse Resp B/P (MAP) Pulse Ox O2 Delivery O2 Flow Rate FiO2 04/02/19 05:32 73 04/02/19 04:00 97.0 18 139/70 (93) 97 04/01/19 21:00 Room Air 03/30/19 12:59 3 03/29/19 15:09 36 Discharge Disposition Patient was discharged to home Discharge Diagnoses: (1) Hemoptysis (2) Acute blood loss anemia (3) Bronchiectasis (4) Pulmonary fibrosis (5) History of cervical cancer (6) Gastritis (7) Hydronephrosis (8) Hiatal hernia (9) Hypertension Saul Duarte M.D. Apr 02, 2019 08:22
--- NOTE | 2019-04-02 08:22 | Discharge Instructions ---
Discharge Instructions Discharge Instructions Special Instructions You need to obtain PET/CT chest, and follow up with Dr. Darden the program specialist for further assessment and work up For Congestive Heart Failure Reminder Report to your physician any weight gain of 5 pounds or more in one week. Saul Duarte M.D. Apr 02, 2019 08:22
[2019-04-02] MEDS: Docusate 100mg cap ORAL SCH (09:43)
[2019-04-02] MEDS: Pantoprazole Inj IVP SCH (09:43)
--- NOTE | 2019-04-02 10:36 | NUR ---
NURSE NOTES: discharge order in, Md called in [facility] in [place], prescription printed for guaifensesin/codeine and given to the pt, pt IV removed, dressed and stable, Vital WNL, pt calm and cooperative, taxi will be called for waste picker
--- NOTE | 2019-04-02 11:33 | NUR ---
NURSE NOTES: pt was taken down to lobby and picked up by taxi and transported home
[2019-04-02 12:00] VITALS: BP 104/65
--- NOTE | 2019-04-02 12:50 | GI Progress Note ---
Assessment/Plan Problems: (1) Upper GI bleed ICD Codes: K92.2 - Gastrointestinal hemorrhage, unspecified SNOMED: 65204722 (2) Hemoptysis ICD Codes: R04.2 - Hemoptysis SNOMED: 88281861 Status: stable Status Narrative Discussed with Dr. Johnson. Assessment/Plan s/p EGD SUMMARY OF FINDINGS: 1. A 3 cm hiatal hernia. 2. Gastritis, status biopsy. RECOMMENDATION: okay for DC per GI standpoint F/U chest CT Consider Pulmonology consultation for possible hemoptysis. Followup biopsy results and treat accordingly. Resume diet. Monitor labs. The patient was seen and examined at bedside and all new and available data was reviewed in the patients chart. I agree with the above findings, impression and plan. (Patient seen earlier today. Signature stamp does not reflect patient encounter time.). - Bairon Johnson MD Subjective Gastrointestinal/Abdominal: Reports: no symptoms Subjective improved Objective Last 24 Hour Vital Signs Date Time Temp Pulse Resp B/P (MAP) Pulse Ox O2 Delivery O2 Flow Rate FiO2 04/02/19 09:34 98 04/02/19 09:33 Room Air 04/02/19 08:00 97.7 89 20 142/80 (100) 94 04/02/19 05:32 73 04/02/19 04:00 97.0 77 18 139/70 (93) 97 04/02/19 00:00 97.7 76 16 124/64 (84) 97 04/02/19 00:00 77 04/01/19 21:00 Room Air 04/01/19 20:00 101 04/01/19 20:00 97.7 85 16 142/78 (99) 96 04/01/19 16:00 86 04/01/19 16:00 98.4 95 18 118/52 (74) 96 Intake and Output 04/01/19 04/02/19 19:00 07:00 Intake Total 780 ml 1740 ml Balance 780 ml 1740 ml Intake Oral 630 ml 240 ml IV Total 150 ml 1500 ml # Voids 3 2 Laboratory Tests Test 04/02/19 05:25 White Blood Count 4.2 K/UL (4.8-10.8) L Red Blood Count 3.84 M/UL (4.20-5.40) L Hemoglobin 11.1 G/DL (12.0-16.0) L Hematocrit 31.3 % (37.0-47.0) L Mean Corpuscular Volume 82 FL (80-99) Mean Corpuscular Hemoglobin 28.9 PG (27.0-31.0) Mean Corpuscular Hemoglobin Concent 35.4 G/DL (32.0-36.0) Red Cell Distribution Width 11.7 % (11.6-14.8) Platelet Count 140 K/UL (150-450) L Mean Platelet Volume 5.7 FL (6.5-10.1) L Neutrophils (%) (Auto) 67.3 % (45.0-75.0) Lymphocytes (%) (Auto) 20.4 % (20.0-45.0) Monocytes (%) (Auto) 10.4 % (1.0-10.0) H Eosinophils (%) (Auto) 1.3 % (0.0-3.0) Basophils (%) (Auto) 0.6 % (0.0-2.0) Sodium Level 141 MMOL/L (136-145) Potassium Level 3.4 MMOL/L (3.5-5.1) L Chloride Level 107 MMOL/L (98-107) Carbon Dioxide Level 26 MMOL/L (21-32) Anion Gap 9 mmol/L (5-15) Blood Urea Nitrogen 10 mg/dL (7-18) Creatinine 0.7 MG/DL (0.55-1.30) Estimat Glomerular Filtration Rate > 60 mL/min (>60) Glucose Level 101 MG/DL (74-106) Calcium Level 8.6 MG/DL (8.5-10.1) Height (Feet): 5 Height (Inches): 0.00 Weight (Pounds): 127 General Appearance: WD/WN, no apparent distress, alert Cardiovascular: normal rate Respiratory/Chest: normal breath sounds, no respiratory distress Abdominal Exam: normal bowel sounds, non tender, soft Extremities: normal range of motion, non-tender Raymond Menendez GOLD LEAF GILDER Apr 02, 2019 12:50
--- NOTE | 2019-04-02 13:15 | NUR ---
DISCHARGE PLANNED: PATIENT HAS AN OUTPATIENT APPOINTMENT FOR PET SCAN F-18 AT [facility] Friday @[facility] [id number] [facility] [id number]
--- NOTE | 2019-04-02 21:50 | Pulmonology Progress Note ---
Assessment/Plan Assessment/Plan ASSESSMENT: The patient is a 68-year-old female with a history of cervical cancer, status post chemoradiation, presenting with concern for hematemesis versus hemoptysis. She underwent an EGD, which showed gastritis and mild hiatal hernia, but on CT scan of the chest, there is a masslike opacity in the right upper lobe with a contralateral left masslike opacity as well with extensive postinflammatory changes in both lungs with bronchiectasis with honeycombing and bullous change. I reviewed imaging with radiology. I suspect these are post-XRT changes in the lungs but agree with the plan of outpatient PET/CT with bronchoscopy based on findings. PROBLEM LIST: 1. Hematemesis versus hemoptysis. Status post EGD on 02/27/2019 with evidence of hiatal hernia and gastritis, biopsy negative. CT of the chest with masslike bilateral upper lobes right greater than left opacities, concerning for post-XRT scarring with associated fibrosis. 2. Pulmonary fibrosis. 3. Bronchiectasis and honeycombing. 4. Cervical cancer, status post chemoradiation. 5. Hypertension. 6. Hydronephrosis. 7. Anemia. 8. Gastritis. 9. Hiatal hernia. TREATMENT PLAN: * Outpatient PET/CT @ [facility] * F/U with me 2-3 weeks * Bronchoscopy and biopsy based on results * The importance of follow up and the possibility of a neoplastic process in the lungs discussed with patient via streetsweeper operator * Stable for D/C from a pulmonary standpoint Subjective Allergies: Coded Allergies: TURKEY (Unverified Allergy, Unknown, 03/29/19) Tuna (Unverified Allergy, Unknown, 03/29/19) Subjective Seen earlier/late entry AFVSS on RA No cough no hemoptysis no hematemesis no melena no BRBPR No SOB no wheezing no FC + OOB + kailash OP Path seen and examined with streetsweeper operator Objective Last 24 Hour Vital Signs Date Time Temp Pulse Resp B/P (MAP) Pulse Ox O2 Delivery O2 Flow Rate FiO2 04/02/19 12:00 98.7 68 20 104/65 (78) 04/02/19 09:34 98 04/02/19 09:33 Room Air 04/02/19 08:00 97.7 89 20 142/80 (100) 94 04/02/19 05:32 73 04/02/19 04:00 97.0 77 18 139/70 (93) 97 04/02/19 00:00 97.7 76 16 124/64 (84) 97 04/02/19 00:00 77 Intake and Output 04/01/19 04/02/19 19:00 07:00 Intake Total 780 ml 1740 ml Balance 780 ml 1740 ml Intake Oral 630 ml 240 ml IV Total 150 ml 1500 ml # Voids 3 2 General Appearance: no acute distress HEENT: normocephalic, atraumatic, anicteric, mucous membranes moist Respiratory/Chest: chest wall non-tender, lungs clear, normal breath sounds, no respiratory distress, no accessory muscle use Cardiovascular: normal peripheral pulses, normal rate, regular rhythm Abdomen: normal bowel sounds, soft, non tender, no organomegaly, non distended , no mass Extremities: no cyanosis, no clubbing, no edema Laboratory Tests 04/02/19 05:25: White Blood Count 4.2L, Red Blood Count 3.84L, Hemoglobin 11.1L, Hematocrit 31.3L, Mean Corpuscular Volume 82, Mean Corpuscular Hemoglobin 28.9, Mean Corpuscular Hemoglobin Concent 35.4, Red Cell Distribution Width 11.7, Platelet Count 140L, Mean Platelet Volume 5.7L, Neutrophils (%) (Auto) 67.3, Lymphocytes (%) (Auto) 20.4, Monocytes (%) (Auto) 10.4H, Eosinophils (%) (Auto) 1.3, Basophils (%) (Auto) 0.6, Sodium Level 141, Potassium Level 3.4L, Chloride Level 107, Carbon Dioxide Level 26, Anion Gap 9, Blood Urea Nitrogen 10, Creatinine 0.7, Estimat Glomerular Filtration Rate > 60, Glucose Level 101, Calcium Level 8.6 Yo Darden MD Apr 02, 2019 21:50
== END 2019-04-02 11:35 | disposition home or self-care (01) | DRG 241 ==
LOC: EDBD 08:04 → EMR 08:35 → EDBEDREQ 09:31 → EDBD 11:47 → 2E 11:47
PROC: 0DB78ZX Excision of Stomach, Pylorus, Via Natural or Artificial Opening Endoscopic, Diagnostic (ICD-10-PCS; principal; 2019-03-30 12:20)
DX: K29.71 Gastritis, unspecified, with bleeding (principal); K44.9 Diaphragmatic hernia without obstruction or gangrene; J84.10 Pulmonary fibrosis, unspecified; J47.9 Bronchiectasis, uncomplicated; I10 Essential (primary) hypertension; N13.30 Unspecified hydronephrosis; D62 Acute posthemorrhagic anemia; Z85.41 Personal history of malignant neoplasm of cervix uteri; Z92.3 Personal history of irradiation; Z90.49 Acquired absence of other specified parts of digestive tract
CPT/HCPCS: 36415; 71045; 71260; 74176; 80048; 80053; 81003; 82962; 83690; 85025; 85610; 85730; 86850; 86900; 86901; 93005; 94003; 94150; 94640; 96365; 96368; 96375; 99291; J2405; J2765; J7030; J8499